=== PATIENT | female | born 1945 | race Hispanic/Latino ===

== ENCOUNTER 2019-04-05 15:28 | Inpatient (IN) | payer MEDICARE ==
--- NOTE | 2019-04-05 15:46 | Emergency Department Report ---
Blank Doc - Documentation Documentation: This is a 73-year-old female that presents with chest pain and SOB. This initial assessment/diagnostic orders/clinical plan/treatment(s) is/are subject to change based on patient's health status, clinical progression and re- assessment by fellow clinical providers in the ED. Further treatment and workup at subsequent clinical providers discretion. Patient/guardians urged not to elope from the ED as their condition may be serious if not clinically assessed and managed. Initial orders include: 1- Patient sent to MAIN ED for further evaluation and treatment 2- labs 3- EKG 4- CXR
[2019-04-05 16:21] LABS: Basophils # (Auto) 0.1 K/mm3 (0.0-0.1); Basophils % (Auto) 0.9 % (0.0-1.8); Eosinophils # (Auto) 0.2 K/mm3 (0.0-0.4); Eosinophils % (Auto) 1.7 % (0.0-4.3); Hematocrit 29.3 % (30.3-42.9); Hemoglobin 8.8 gm/dl (10.1-14.3); Lymphocytes # (Auto) 1.8 K/mm3 (1.2-5.4); Lymphocytes % (Auto) 15.3 % (13.4-35.0); Mean Corpuscular HGB Conc 30 % (30-34); Mean Corpuscular Volume 72 fl (79-97); Monocytes # (Auto) 0.5 K/mm3 (0.0-0.8); Monocytes % (Auto) 4.2 % (0.0-7.3); Platelet Count 400 K/mm3 (140-440); Red Blood Count 4.09 M/mm3 (3.65-5.03)
--- NOTE | 2019-04-05 16:21 | XRay Report ---
CHEST 2 VIEWS INDICATION / CLINICAL INFORMATION: Chest Pain. COMPARISON: 11/12/14 FINDINGS: SUPPORT DEVICES: None. HEART / MEDIASTINUM: Heart is upper normal size and stable. Slight increase in size of moderately lar ge retrocardiac hiatal hernia. LUNGS / PLEURA: No significant pulmonary or pleural abnormality. No pneumothorax. ADDITIONAL FINDINGS: No significant additional findings. IMPRESSION: 1. No acute pulmonary or pleural findings. 2. Moderately large hiatal hernia. Signer Name: Ami Gregory MD Signed: 04/05/2019 4:17 PM Workstation Name: [id number] [email or web address]
[2019-04-05 16:42] LABS: Calcium 8.7 mg/dL (8.4-10.2)
[2019-04-05 17:47] LABS: INR 1.01 (0.87-1.13)
[2019-04-05 17:57] LABS: Partial Thromboplastin Time 30.2 Sec. (24.2-36.6)
[2019-04-05] MEDS ORDERED: ZOFRAN IV PRN ×2 (19:50→22:16)
[2019-04-05] MEDS ORDERED: MORPHINE IV PRN (19:50)
--- NOTE | 2019-04-05 19:56 | Emergency Department Report ---
HPI - General Chief Complaint: Chest Pain Time Seen by Provider: 04/05/19 15:45 - HPI HPI: Room 24 The patient is a 73-year-old female presented with a chief complaint of chest pain and knee pain. The patient states she's had pain in the left chest and left knee for approximately one week. Patient states she does recall falling over a chair one week ago. Patient complains of pain in left chest described as intermittent with movement. Patient denies shortness of breath, nausea/vomiting or diaphoresis. Patient admits to increased cough over the past 3 days as occasionally productive. Family states the patient has had multiple falls in the past week and is now unable to ablate without falling. Location: [See above] Duration: [See above] Quality: [See above] Severity: [See above] Modifying factors: [see above] Context: [see above] Mode of transportation: [not driving] ED Past Medical Hx - Past Medical History Hx Hypertension: Yes Hx Diabetes: Yes Hx COPD: Yes Hx Dementia: Yes Additional medical history: lupus, anxiety, hyperlipidemia. States a "blood clot on the brain". - Surgical History Hx Appendectomy: Yes Additional Surgical History: Tonsillectomy - Family History Family history: no significant - Social History Smoking Status: Former Smoker (none 50 years) Substance Use Type: None - Medications Home Medications: Home Medications Medication Instructions Recorded Confirmed Last Taken Type ALPRAZolam [Xanax TAB] 0.25 mg PO BID PRN 11/12/14 04/05/19 11/12/14 History Carvedilol [Coreg] 25 mg PO BID 11/12/14 04/05/19 11/12/14 History Hydroxychloroquine [Plaquenil] 400 mg PO QDAY 11/12/14 04/05/19 11/12/14 History PARoxetine (NF) [Paxil] 40 mg PO DAILY 11/12/14 04/05/19 11/12/14 History Simvastatin [Zocor] 80 mg PO QDAY 11/12/14 04/05/19 11/12/14 History metFORMIN [Glucophage] 1,000 mg PO BID 11/12/14 04/05/19 11/12/14 History methylPREDNISolone [Medrol] 4 mg PO Q24HR 11/12/14 04/05/19 11/12/14 History predniSONE [Deltasone] 20 mg PO QDAY 11/12/14 04/05/19 11/12/14 History Azithromycin [Zithromax Z-PAVAN] 250 mg PO DAILY #6 tablet 11/13/14 04/05/19 Unknown Rx HYDROcodone/APAP 5-325 [Drums 1 each PO Q8HR PRN #14 tablet 11/13/14 04/05/19 Unknown Rx 5/325] ED Review of Systems ROS: Stated complaint: CHEST PAIN Other details as noted in HPI Constitutional: denies: diaphoresis Eyes: denies: eye pain ENT: denies: throat pain Respiratory: cough. denies: shortness of breath Cardiovascular: chest pain Endocrine: no symptoms reported Gastrointestinal: denies: nausea, vomiting Genitourinary: denies: dysuria Musculoskeletal: arthralgia Neurological: denies: headache Physical Exam - Physical Exam Vital Signs: Vital Signs 04/05/19 04/05/19 15:46 19:37 Temperature 98.6 F 98.5 F Pulse Rate 111 H 102 H Respiratory 20 16 Rate Blood Pressure 131/62 Blood Pressure 153/73 [Right] O2 Sat by Pulse 95 98 Oximetry Physical Exam: GENERAL: The patient is well-developed well-nourished female lying on stretcher not appearing to be in acute distress. [] HEENT: Normocephalic. Atraumatic. Extraocular motions are intact. Patient has moist mucous membranes. NECK: Supple. No midline CHEST/LUNGS: Clear to auscultation. There is no respiratory distress noted. HEART/CARDIOVASCULAR: Regular. There is no tachycardia. There is no gallop rub or murmur. ABDOMEN: Abdomen is soft, nontender. Patient has normal bowel sounds. There is no abdominal distention. SKIN: There is no rash. There is no edema. There is no diaphoresis. NEURO: The patient is awake, alert, and oriented. The patient is cooperative. The patient has no focal neurologic deficits. The patient has normal speech MUSCULOSKELETAL: There is mild discomfort to palpation of the left knee. ED Course Vital Signs 04/05/19 04/05/19 15:46 19:37 Temperature 98.6 F 98.5 F Pulse Rate 111 H 102 H Respiratory 20 16 Rate Blood Pressure 131/62 Blood Pressure 153/73 [Right] O2 Sat by Pulse 95 98 Oximetry ED Medical Decision Making - Lab Data Result diagrams: 04/05/19 16:07 04/05/19 16:07 - EKG Data -: EKG Interpreted by Me EKG shows normal: sinus rhythm Rate: tachycardia - EKG Data When compared to previous EKG there are: changes noted Interpretation: nonspecific ST-T wave german (new T-wave inversion in lead V2, V3 compared to previous EKG dated 11/12/2014) - Radiology Data Radiology results: report reviewed (chest x-ray, CT head, CT chest, pelvis x- ray, left knee x-ray), image reviewed (chest x-ray, CT head, CT chest, pelvis x- ray, left knee x-ray) interpreted by me: Chest x-ray-no focal infiltrates, no pneumothorax Pelvis x-ray-no acute fracture Left knee x-ray-no definite fracture seen. Opaque densities seen [address] [address] XRay Report Signed Patient: LUANNE BRANCH MR#: [id number] [birth year] : 1945 Acct:[id number] Age/Sex: 73 / F ADM Date: 04/05/19 Loc: ED Attending Dr: Ordering Physician: MARICRUZ MCDONNELL NP Date of Service: 04/05/19 Procedure(s): XR chest routine 2V Accession Number(s): [id number] cc: MARICRUZ MCDONNELL NP Fluoro Time In Minutes: CHEST 2 VIEWS INDICATION / CLINICAL INFORMATION: Chest Pain. COMPARISON: 11/12/14 FINDINGS: SUPPORT DEVICES: None. HEART / MEDIASTINUM: Heart is upper normal size and stable. Slight increase in size of moderately large retrocardiac hiatal hernia. LUNGS / PLEURA: No significant pulmonary or pleural abnormality. No pneumothorax. ADDITIONAL FINDINGS: No significant additional findings. IMPRESSION: 1. No acute pulmonary or pleural findings. 2. Moderately large hiatal hernia. Signer Name: Ami Gregory MD Signed: 04/05/2019 4:17 PM Workstation Name: [email or web address] Transcribed By: DT Dictated By: Brando Gregory MD Electronically Authenticated By: Brando Gregory MD Signed Date/Time: 04/05/191616 DD/ 15 TD/TT: [address] [address] Cat Scan Report Signed Patient: LUANNE BRANCH MR#: [id number] [birth year] : 1945 Acct:[id number] Age/Sex: 73 / F ADM Date: 04/05/19 Loc: ED Attending Dr: Ordering Physician: BARBARA JENSEN MD Date of Service: 04/05/19 Procedure(s): CT head/brain wo con Accession Number(s): [id number] cc: BARBARA JENSEN MD CT HEAD WITHOUT CONTRAST INDICATION: fall. Head injury TECHNIQUE: All CT scans at this location are performed using CT dose reduction for ALARA by means of automated exposure control. COMPARISON: CT 11/13/2014. FINDINGS: HEMORRHAGE: None. EXTRA-AXIAL SPACES: Normal in size and morphology for the patient's age. VENTRICULAR SYSTEM: Normal in size and morphology for the patient's age. BRAIN PARENCHYMA: No acute findings. Mild periventricular white matter hypodensities are likely due to microangiopathy. MIDLINE SHIFT OR HERNIATION: None. ORBITS: Normal as visualized. SOFT TISSUES OF HEAD: Normal. CALVARIUM: Normal. VISUALIZED PARANASAL SINUSES AND MASTOID AIR CELLS: Clear. ADDITIONAL FINDINGS: None. IMPRESSION: 1. No acute intracranial abnormality. Signer Name: Edwin Holt MD Signed: 04/05/2019 9:12 PM Workstation Name: [id number] Transcribed By: Dictated By: Edwin Holt MD Electronically Authenticated By: Edwin Holt MD Signed Date/Time: 04/05/192111 DD/ 08 TD/TT: [address] [address] Cat Scan Report Signed Patient: LUANNE BRANCH MR#: [id number] [birth year] : 1945 Acct:[id number] Age/Sex: 73 / F ADM Date: 04/05/19 Loc: ED Attending Dr: Ordering Physician: BARBARA JENSEN MD Date of Service: 04/05/19 Procedure(s): CT chest wo con Accession Number(s): [id number] cc: BARBARA JENSEN MD CT CHEST WITHOUT CONTRAST INDICATION / CLINICAL INFORMATION: left chest pain after fall. TECHNIQUE: Axial CT images were obtained through the chest without contrast. All CT scans at this location are performed using CT dose reduction for ALARA by means of automated exposure control. COMPARISON: CT abdomen dated 04/21/15 FINDINGS: HEART: Heart is upper normal size and stable. Mild coronary artery calcifications. THORACIC AORTA: No significant abnormality. MEDIASTINUM and ELENA: No significant abnormality. LUNGS: Mild bibasilar atelectasis. PLEURA: No significant pleural effusion. No pneumothorax. ADDITIONAL FINDINGS: None. UPPER ABDOMEN: Moderately large hiatal hernia is unchanged. SKELETAL SYSTEM: Subtle buckle fracture of the anterior left 6th rib may be acute. Several old, healed left rib fractures. IMPRESSION: 1. Possible subtle buckle fracture of the anterior left 6th rib. 2. No acute pulmonary or pleural findings. 3. Moderately large hiatal hernia, unchanged. Signer Name: Ami Gregory MD Signed: 04/05/2019 9:05 PM Workstation Name: [id number] Transcribed By: DT Dictated By: Brando Gregory MD Electronically Authenticated By: Brando Gregory MD Signed Date/Time: 04/05/192104 DD/ 01 TD/TT: [facility] [address] [place] [address] XRay Report Signed Patient: LUANNE BRANCH MR#: [id number] [birth year] : 1945 Acct:[id number] Age/Sex: 73 / F ADM Date: 04/05/19 Loc: ED Attending Dr: Ordering Physician: BARBARA JENSEN MD Date of Service: 04/05/19 Procedure(s): XR pelvis 1-2V Accession Number(s): [id number] cc: BARBARA JENSEN MD Fluoro Time In Minutes: PELVIS 1 VIEW(S) INDICATION / CLINICAL INFORMATION: MAIN: inability to ambulate, pain after fall COMPARISON: None available. FINDINGS: BONES / JOINT(S): No acute fracture or subluxation. Mild bilateral hip joint space narrowing. Patient is subjectively osteopenic. Mild degenerative arthrosis of the lower lumbar spine. SOFT TISSUES: No significant abnormality. ADDITIONAL FINDINGS: None. Signer Name: Ami Gregory MD Signed: 04/05/2019 8:31 PM Workstation Name: [id number] Transcribed By: DT Dictated By: Brando Gregory MD Electronically Authenticated By: Brando Gregory MD Signed Date/Time: 04/05/192030 DD/ 29 TD/TT: [facility] [address] [place] [address] XRay Report Signed Patient: LUANNE BRANCH MR#: [id number] [birth year] : 1945 Acct:[id number] Age/Sex: 73 / F ADM Date: 04/05/19 Loc: ED Attending Dr: Ordering Physician: BARBARA JENSEN MD Date of Service: 04/05/19 Procedure(s): XR knee 3V LT Accession Number(s): [id number] cc: BARBARA JENSEN MD Fluoro Time In Minutes: LEFT KNEE 4 VIEW(S) INDICATION / CLINICAL INFORMATION: pain after fall COMPARISON: None available. FINDINGS: BONES / JOINT(S): No acute fracture or subluxation. Moderate tricompartment degenerative arthrosis. Chondrocalcinosis of both menisci. 1 cm osteochondral body in the posterior joint space. No significant joint effusion. SOFT TISSUES: Mild anterior soft tissue swelling. ADDITIONAL FINDINGS: None. Signer Name: Ami Gregory MD Signed: 04/05/2019 8:30 PM Workstation Name: [id number] Transcribed By: DT Dictated By: Brando Gregory MD Electronically Authenticated By: Brando Gregory MD Signed Date/Time: 04/05/192029 DD/ 28 TD/TT: - Differential Diagnosis bruised rib, rib fracture, ACS, pericarditis, hiatal hernia, GERD Critical care attestation.: If time is entered above; I have spent that time in minutes in the direct care of this critically ill patient, excluding procedure time. ED Disposition Clinical Impression: Chest pain, Rib fracture, Unable to ambulate Disposition: OP ADMIT IP TO THIS HOSP Is pt being admited?: Yes Does the pt Need Aspirin: Yes Condition: Fair Instructions: Chest Pain (ED) Referrals: JAMI GALO MD [Primary Care Provider] - 3-5 Days Time of Disposition: 21:47 (hospitalist paged (Dr. Aleyda Powers))
--- NOTE | 2019-04-05 20:35 | XRay Report ---
LEFT KNEE 4 VIEW(S) INDICATION / CLINICAL INFORMATION: pain after fall COMPARISON: None available. FINDINGS: BONES / JOINT(S): No acute fracture or subluxation. Moderate tricompartment degenerative arthrosis. C hondrocalcinosis of both menisci. 1 cm osteochondral body in the posterior joint space. No significan t joint effusion. SOFT TISSUES: Mild anterior soft tissue swelling. ADDITIONAL FINDINGS: None. Signer Name: Ami Gregory MD Signed: 04/05/2019 8:30 PM Workstation Name: [id number]
--- NOTE | 2019-04-05 20:36 | XRay Report ---
PELVIS 1 VIEW(S) INDICATION / CLINICAL INFORMATION: MAIN: inability to ambulate, pain after fall COMPARISON: None available. FINDINGS: BONES / JOINT(S): No acute fracture or subluxation. Mild bilateral hip joint space narrowing. Patient is subjectively osteopenic. Mild degenerative arthrosis of the lower lumbar spine. SOFT TISSUES: No significant abnormality. ADDITIONAL FINDINGS: None. Signer Name: Ami Gregory MD Signed: 04/05/2019 8:31 PM Workstation Name: [id number]
--- NOTE | 2019-04-05 21:10 | Cat Scan Report ---
CT CHEST WITHOUT CONTRAST INDICATION / CLINICAL INFORMATION: left chest pain after fall. TECHNIQUE: Axial CT images were obtained through the chest without contrast. All CT scans at this location are p erformed using CT dose reduction for ALARA by means of automated exposure control. COMPARISON: CT abdomen dated 04/21/15 FINDINGS: HEART: Heart is upper normal size and stable. Mild coronary artery calcifications. THORACIC AORTA: No significant abnormality. MEDIASTINUM and ELENA: No significant abnormality. LUNGS: Mild bibasilar atelectasis. PLEURA: No significant pleural effusion. No pneumothorax. ADDITIONAL FINDINGS: None. UPPER ABDOMEN: Moderately large hiatal hernia is unchanged. SKELETAL SYSTEM: Subtle buckle fracture of the anterior left 6th rib may be acute. Several old, heale d left rib fractures. IMPRESSION: 1. Possible subtle buckle fracture of the anterior left 6th rib. 2. No acute pulmonary or pleural findings. 3. Moderately large hiatal hernia, unchanged. Signer Name: Ami Gregory MD Signed: 04/05/2019 9:05 PM Workstation Name: [id number]
--- NOTE | 2019-04-05 21:16 | Cat Scan Report ---
CT HEAD WITHOUT CONTRAST INDICATION: fall. Head injury TECHNIQUE: All CT scans at this location are performed using CT dose reduction for ALARA by means of automated e xposure control. COMPARISON: CT 11/13/2014. FINDINGS: HEMORRHAGE: None. EXTRA-AXIAL SPACES: Normal in size and morphology for the patient's age. VENTRICULAR SYSTEM: Normal in size and morphology for the patient's age. BRAIN PARENCHYMA: No acute findings. Mild periventricular white matter hypodensities are likely due t o microangiopathy. MIDLINE SHIFT OR HERNIATION: None. ORBITS: Normal as visualized. SOFT TISSUES OF HEAD: Normal. CALVARIUM: Normal. VISUALIZED PARANASAL SINUSES AND MASTOID AIR CELLS: Clear. ADDITIONAL FINDINGS: None. IMPRESSION: 1. No acute intracranial abnormality. Signer Name: Edwin Holt MD Signed: 04/05/2019 9:12 PM Workstation Name: [id number]
[2019-04-05] MEDS ORDERED: ASPIRIN PO ONE (21:46)
[2019-04-05] MEDS ORDERED: K-DUR PO ONE (21:46)
[2019-04-05] MEDS ORDERED: D50W (25GM) Syringe IV PRN (22:16)
[2019-04-05] MEDS ORDERED: SODIUM CHLORIDE FLUSH SYRINGE 10 ML IV PRN (22:16)
--- NOTE | 2019-04-05 22:30 | History and Physical Report ---
History of Present Illness Date of examination: 04/05/19 History of present illness: 73-year-old history of hypertension, diabetes, COPD, hyperlipidemia and anxiety was brought to the emergency room for difficulty ambulating. Patient sustained a fall on , fell on the left chest and hurt her knees, left greater than right. Stated that her chest feels bruise. Patient subsequently had 3 more falls Review Of Systems: Constitutional: no weight loss, fever, chills Ears, eyes, nose, mouth and throat: no nasal congestion, no nasal discharge, no sinus pressure, blurry vision, diplopia Neck: No neck pain or rigidity. Cardiovascular: No palpitations Respiratory: No shortness of breath, cough Gastrointestinal: No hematochezia, abdominal pain Genitourinary : no dysuria, frequency , hematuria Musculoskeletal: no muscle ache Integumentary: no rash, no pruritis Neurological: no parathesias, focal weakness Endocrine: no cold or heat intolerance, no polyuria or polydipsia Hematologic/Lymphatic: no easy bruising, no easy bleeding, no gland swelling Allergic/Immunologic: no urticaria, no angioedema. PAST MEDICAL HISTORY:hypertension, diabetes, COPD, hyperlipidemia and anxiety PAST SURGICAL HISTORY: Tonsillectomy, appendicectomy FAMILY HISTORY:hypertension, diabetes SOCIAL HISTORY: Denies tobacco, drugs, alcohol Medications and Allergies Allergies Allergy/AdvReac Type Severity Reaction Status Date / Time codeine Allergy Swelling Verified 11/12/14 18:20 Penicillins Allergy Anaphylaxis Verified 11/12/14 18:31 Home Medications Medication Instructions Recorded Confirmed Last Taken Type ALPRAZolam [Xanax TAB] 0.25 mg PO BID PRN 11/12/14 04/05/19 11/12/14 History Carvedilol [Coreg] 25 mg PO BID 11/12/14 04/05/19 11/12/14 History Hydroxychloroquine [Plaquenil] 400 mg PO QDAY 11/12/14 04/05/19 11/12/14 History PARoxetine (NF) [Paxil] 40 mg PO DAILY 11/12/14 04/05/19 11/12/14 History Simvastatin [Zocor] 80 mg PO QDAY 11/12/14 04/05/19 11/12/14 History metFORMIN [Glucophage] 1,000 mg PO BID 11/12/14 04/05/19 11/12/14 History methylPREDNISolone [Medrol] 4 mg PO Q24HR 11/12/14 04/05/19 11/12/14 History predniSONE [Deltasone] 20 mg PO QDAY 11/12/14 04/05/19 11/12/14 History Azithromycin [Zithromax Z-PAVAN] 250 mg PO DAILY #6 tablet 11/13/14 04/05/19 Unknown Rx HYDROcodone/APAP 5-325 [Johnson 1 each PO Q8HR PRN #14 tablet 11/13/14 04/05/19 Unknown Rx 5/325] Active Meds: Active Medications Acetaminophen (Tylenol) 650 mg PO Q4H PRN PRN Reason: Pain MILD(1-3)/Fever >100.5/PITTS Dextrose (D50w (25gm) Syringe) 50 ml IV PRN PRN PRN Reason: Hypoglycemia Enoxaparin Sodium (Lovenox) 30 mg SUB-Q QDAY DELFINO Insulin Human Lispro (Humalog) 0 unit SUB-Q ACHS DELFINO; Protocol Morphine Sulfate (Morphine) 4 mg IV ONCE PRN PRN Reason: Pain , Severe (7-10) Ondansetron HCl (Zofran) 8 mg IV ONCE PRN PRN Reason: Nausea Ondansetron HCl (Zofran) 4 mg IV Q8H PRN PRN Reason: Nausea And Vomiting Sodium Chloride (Sodium Chloride Flush Syringe 10 Ml) 10 ml IV BID DELFINO Sodium Chloride (Sodium Chloride Flush Syringe 10 Ml) 10 ml IV PRN PRN PRN Reason: LINE FLUSH Exam - Physical Exam Narrative exam: General Apperance: The patient sitting in bed no acute distress HEENT: Normocephalic, atraumatic. Pupils equally round and reactive to light, extraocular movement intact, and no sclericterus or JVD or thyromegaly or nodule. Neck supple, no carotid bruit, mucous membranes moist, no exudate or erythema Heart: S1-S2, regular is rhythm Lungs: Clear to auscultation bilaterally, breathing comfortable Abdomen: Positive bowel sounds, soft, nontender, nondistended, no organomegaly Extremities: No edema cyanosis clubbing Skin: no rash, nodule, warm and dry Neuro:CN 2 -12 intact, motor/sensory intact, speech is fluent - Constitutional Vitals: Temp Pulse Resp BP Pulse Ox 98.5 F 102 H 16 153/73 98 04/05/19 19:37 04/05/19 19:37 04/05/19 19:37 04/05/19 19:37 04/05/19 19:37 Results - Labs CBC & Chem 7: 04/06/19 05:59 04/11/19 14:48 Labs: Abnormal lab results 04/05/19 04/05/19 Range/Units 16:07 16:07 WBC 11.6 H (4.5-11.0) K/mm3 Hgb 8.8 L (10.1-14.3) gm/dl Hct 29.3 L (30.3-42.9) % MCV 72 L (79-97) fl MCH 22 L (28-32) pg RDW 19.0 H (13.2-15.2) % Seg Neutrophils % 77.9 H (40.0-70.0) % Seg Neutrophils # 9.0 H (1.8-7.7) K/mm3 Sodium 136 L (137-145) mmol/L Potassium 3.2 L (3.6-5.0) mmol/L Chloride 95.7 L (98-107) mmol/L Glucose 260 H (65-100) mg/dL - Imaging and Cardiology EKG: image reviewed Chest x-ray: image reviewed CT scan - chest: report reviewed CT Scan - head: report reviewed Assessment and Plan pelvis, knee xray reviewed Assessment Failure to thrive Fractured rib hypertension diabetes COPD hyperlipidemia anxiety Plan Admit to medicine Consult physical therapy, pain medication Check fingersticks and initiate insulin sliding scale Continue appropriate outpatient medications DVT prophylaxis
[2019-04-05] MEDS ORDERED: HumaLOG SUB-Q SCH (23:04)
[2019-04-05] MEDS ORDERED: APRESOLINE ONE (23:28)
[2019-04-05] MEDS ORDERED: HumaLOG SUB-Q ONE (23:30)
[2019-04-05] MEDS: HumaLOG SUB-Q SCH (23:35)
[2019-04-05] MEDS: APRESOLINE IV PRN (23:36)
[2019-04-06 06:32] LABS: Basophils # (Auto) 0.1 K/mm3 (0.0-0.1); Basophils % (Auto) 0.8 % (0.0-1.8); Eosinophils # (Auto) 0.2 K/mm3 (0.0-0.4); Eosinophils % (Auto) 2.4 % (0.0-4.3); Hematocrit 25.5 % (30.3-42.9); Hemoglobin 8.1 gm/dl (10.1-14.3); Lymphocytes # (Auto) 1.1 K/mm3 (1.2-5.4); Lymphocytes % (Auto) 14.5 % (13.4-35.0); Mean Corpuscular HGB Conc 32 % (30-34); Mean Corpuscular Volume 70 fl (79-97); Monocytes # (Auto) 0.4 K/mm3 (0.0-0.8); Monocytes % (Auto) 4.7 % (0.0-7.3); Red Blood Count 3.63 M/mm3 (3.65-5.03); Red Cell Distribution Width 18.9 % (13.2-15.2)
[2019-04-06 06:50] LABS: Calcium 8.6 mg/dL (8.4-10.2)
[2019-04-06 06:55] LABS: Platelet Count 334 K/mm3 (140-440)
[2019-04-06] MEDS ORDERED: HumaLOG SUB-Q SCH (07:30)
[2019-04-06] MEDS: GLUCOPHAGE PO SCH ×2 (08:51→17:52)
[2019-04-06] MEDS: HumaLOG SUB-Q SCH ×4 (08:52→21:20)
[2019-04-06] MEDS: PAXIL PO SCH (09:33)
[2019-04-06] MEDS: DELTASONE PO SCH (09:33)
[2019-04-06] MEDS: PLAQUENIL PO SCH (09:33)
[2019-04-06] MEDS: LOVENOX SUB-Q SCH (09:34)
[2019-04-06] MEDS: COREG PO SCH ×3 (09:34→22:25)
[2019-04-06] MEDS: SODIUM CHLORIDE FLUSH SYRINGE 10 ML IV SCH ×2 (09:35→21:15)
[2019-04-06] MEDS: PRAVACHOL PO SCH (12:37)
--- NOTE | 2019-04-06 15:19 | Progress Note ---
Assessment and Plan Failure to thrive s/p fall Fractured rib hypertension diabetes COPD hyperlipidemia anxiety Plan monitor at [facility] [place] Consulted physical therapy, pain medication as needed Check fingersticks BG and continue insulin sliding scale Continue appropriate outpatient medications, nebs as needed CM consulted for placement, nutrition consult DVT prophylaxis Brief history: 73-year-old history of hypertension, diabetes, COPD, hyperlipidemia and anxiety was brought to the emergency room for difficulty ambulating. Patient sustained a fall on , fell on the left chest and hurt her knees, left greater than right. Stated that her chest feels bruise. Patient subsequently had 3 more falls, brought to ER for further mx and placement. Subjective Date of service: 04/06/19 Interval history: patient seen and examined no acute issue o/n states feels better, chest pain much improved Objective - Exam Narrative Exam: General Apperance: The patient lying in bed no acute distress HEENT: Normocephalic, atraumatic. Pupils equally round and reactive to light, extraocular movement intact, and no sclericterus or JVD or thyromegaly or nodule. Neck supple, no carotid bruit, mucous membranes moist, no exudate or erythema Heart: S1-S2, regular is rhythm Lungs: Clear to auscultation bilaterally, breathing comfortable Abdomen: Positive bowel sounds, soft, nontender, nondistended, no organomegaly Extremities: No edema cyanosis clubbing Skin: no rash, nodule, warm and dry Neuro:CN 2 -12 intact, motor/sensory intact, speech is fluent - Constitutional Vitals: Vital Signs - 12hr 04/06/19 04/06/19 04/06/19 05:44 05:45 12:16 Temperature 98.5 F 98.2 F Pulse Rate 73 83 Respiratory 19 20 Rate Blood Pressure 161/61 90/43 O2 Sat by Pulse 96 96 Oximetry - Labs CBC & Chem 7: 04/06/19 05:59 04/06/19 05:59 Labs: Abnormal lab results 04/05/19 04/05/19 04/05/19 Range/Units 16:07 16:07 23:30 WBC 11.6 H (4.5-11.0) K/mm3 RBC (3.65-5.03) M/mm3 Hgb 8.8 L (10.1-14.3) gm/dl Hct 29.3 L (30.3-42.9) % MCV 72 L (79-97) fl MCH 22 L (28-32) pg RDW 19.0 H (13.2-15.2) % Lymph # (1.2-5.4) K/mm3 Seg Neutrophils % 77.9 H (40.0-70.0) % Seg Neutrophils # 9.0 H (1.8-7.7) K/mm3 Sodium 136 L (137-145) mmol/L Potassium 3.2 L (3.6-5.0) mmol/L Chloride 95.7 L (98-107) mmol/L Glucose 260 H (65-100) mg/dL POC Glucose 214 H (70-105) 04/06/19 04/06/19 04/06/19 Range/Units 05:59 05:59 07:57 WBC (4.5-11.0) K/mm3 RBC 3.63 L (3.65-5.03) M/mm3 Hgb 8.1 L (10.1-14.3) gm/dl Hct 25.5 L (30.3-42.9) % MCV 70 L (79-97) fl MCH 22 L (28-32) pg RDW 18.9 H (13.2-15.2) % Lymph # 1.1 L (1.2-5.4) K/mm3 Seg Neutrophils % 77.6 H (40.0-70.0) % Seg Neutrophils # (1.8-7.7) K/mm3 Sodium (137-145) mmol/L Potassium (3.6-5.0) mmol/L Chloride (98-107) mmol/L Glucose 227 H (65-100) mg/dL POC Glucose 183 H (70-105) 04/06/19 Range/Units 11:23 WBC (4.5-11.0) K/mm3 RBC (3.65-5.03) M/mm3 Hgb (10.1-14.3) gm/dl Hct (30.3-42.9) % MCV (79-97) fl MCH (28-32) pg RDW (13.2-15.2) % Lymph # (1.2-5.4) K/mm3 Seg Neutrophils % (40.0-70.0) % Seg Neutrophils # (1.8-7.7) K/mm3 Sodium (137-145) mmol/L Potassium (3.6-5.0) mmol/L Chloride (98-107) mmol/L Glucose (65-100) mg/dL POC Glucose 169 H (70-105)
[2019-04-07] MEDS: GLUCOPHAGE PO SCH ×2 (09:02→17:42)
[2019-04-07] MEDS: HumaLOG SUB-Q SCH ×4 (09:03→22:20)
[2019-04-07] MEDS: PLAQUENIL PO SCH (10:06)
[2019-04-07] MEDS: PAXIL PO SCH (10:06)
[2019-04-07] MEDS: COREG PO SCH ×2 (10:06→22:19)
[2019-04-07] MEDS: DELTASONE PO SCH (10:06)
[2019-04-07] MEDS: LOVENOX SUB-Q SCH (10:06)
[2019-04-07] MEDS: SODIUM CHLORIDE FLUSH SYRINGE 10 ML IV SCH ×2 (10:07→22:21)
--- NOTE | 2019-04-07 10:54 | Progress Note ---
Assessment and Plan Assessment and plan: --Failure to thrive; nutrition supplements and supportive care Physical therapy and occupational therapy --s/p falll fall precautions, physical therapy occupational therapy --Fractured rib; causing left-sided chest pain, musculoskeletal Pain medications, incentive spirometry --Atypical chest pain; secondary to trauma/rib fracture/musculoskeletal Pain medications, incentive spirometry and supportive care --hypertension; moderate control, continue current anti-hypertensives When necessary medications --diabetes mellitus; Accu-Chek,SSC and ADA diet, metformin, 70/30 insulin 8 units twice a day Check A1c . --History of COPD; oxygen titrate O2 sats to more than 90%, nebulizers as needed --hyperlipidemia; lipid lowering medications, Low-cholesterol diet --anxiety; anxiolytics and supportive care --DVT prophylaxis; Lovenox --Full code --DC planning. Case management, --Possible placement in subacute/acute/SNF when medically stable Plan of care reviewed with the patient and the family member at the bedside as well as patient's nurse Brief history: 73-year-old history of hypertension, diabetes, COPD, hyperlipidemia and anxiety was brought to the emergency room for difficulty ambulating. Patient sustained a fall on , fell on the left chest and hurt her knees, left greater than right. Stated that her chest feels bruise. Patient subsequently had 3 more falls, brought to ER for further mx and placement. History Interval history: Patient seen and examined medical records reviewed Complaints of generalized weakness Alert awake oriented Vital signs reviewed Patient denies chest pain or shortness of breath Denies headache or dizziness Hospitalist Physical - Constitutional Vitals: Temp Pulse Resp BP Pulse Ox 98.5 F 93 H 18 184/73 94 04/07/19 07:50 04/06/19 21:13 04/07/19 07:50 04/07/19 07:50 04/07/19 09:56 General appearance: Present: no acute distress, well-nourished - EENT Eyes: Present: PERRL, EOM intact - Neck Neck: Present: supple, normal ROM - Respiratory Respiratory effort: normal Respiratory: bilateral: diminished, negative: rales, rhonchi, wheezing - Cardiovascular Rhythm: regular Heart Sounds: Present: S1 & S2 - Extremities Extremities: no ischemia, No edema - Abdominal General gastrointestinal: soft, non-tender, non-distended, normal bowel sounds - Integumentary Integumentary: Present: clear, warm - Psychiatric Psychiatric: appropriate mood/affect, cooperative - Neurologic Neurologic: CNII-XII intact, moves all extremities Results - Labs CBC & Chem 7: 04/06/19 05:59 04/06/19 05:59 Labs: Laboratory Last Values WBC 7.5 K/mm3 (4.5-11.0) 04/06/19 05:59 RBC 3.63 M/mm3 (3.65-5.03) L 04/06/19 05:59 Hgb 8.1 gm/dl (10.1-14.3) L 04/06/19 05:59 Hct 25.5 % (30.3-42.9) L 04/06/19 05:59 MCV 70 fl (79-97) L 04/06/19 05:59 MCH 22 pg (28-32) L 04/06/19 05:59 MCHC 32 % (30-34) 04/06/19 05:59 RDW 18.9 % (13.2-15.2) H 04/06/19 05:59 Plt Count 334 K/mm3 (140-440) 04/06/19 05:59 Lymph % (Auto) 14.5 % (13.4-35.0) 04/06/19 05:59 [place] % (Auto) 4.7 % (0.0-7.3) 04/06/19 05:59 Eos % (Auto) 2.4 % (0.0-4.3) 04/06/19 05:59 Baso % (Auto) 0.8 % (0.0-1.8) 04/06/19 05:59 Lymph # 1.1 K/mm3 (1.2-5.4) L 04/06/19 05:59 [place] # 0.4 K/mm3 (0.0-0.8) 04/06/19 05:59 Eos # 0.2 K/mm3 (0.0-0.4) 04/06/19 05:59 Baso # 0.1 K/mm3 (0.0-0.1) 04/06/19 05:59 Seg Neutrophils % 77.6 % (40.0-70.0) H 04/06/19 05:59 Seg Neutrophils # 5.8 K/mm3 (1.8-7.7) 04/06/19 05:59 PT 13.0 Sec. (12.2-14.9) 04/05/19 16:07 INR 1.01 (0.87-1.13) 04/05/19 16:07 APTT 30.2 Sec. (24.2-36.6) 04/05/19 16:07 Sodium 140 mmol/L (137-145) 04/06/19 05:59 Potassium 3.7 mmol/L (3.6-5.0) 04/06/19 05:59 Chloride 99.8 mmol/L (98-107) 04/06/19 05:59 Carbon Dioxide 26 mmol/L (22-30) 04/06/19 05:59 18 mmol/L 04/06/19 05:59 BUN 15 mg/dL (7-17) 04/06/19 05:59 1.1 mg/dL (0.7-1.2) 04/06/19 05:59 Estimated GFR 49 ml/min 04/06/19 05:59 14 % 04/06/19 05:59 Glucose 227 mg/dL (65-100) H 04/06/19 05:59 POC Glucose 229 (70-105) H 04/07/19 07:45 Calcium 8.6 mg/dL (8.4-10.2) 04/06/19 05:59 0.018 ng/mL (0.00-0.029) 04/05/19 19:01 Active Medications - Current Medications Current Medications: Generic Name Dose Route Start Last Admin Trade Name Lucy PRN Reason Stop Dose Admin Acetaminophen 650 mg 04/05/19 22:16 Tylenol PO Q4H PRN Pain MILD(1-3)/Fever >100.5/PITTS Acetaminophen/Hydrocodone Bitart 1 each 04/05/19 22:51 [place] 5/325 PO Q8H PRN Pain (4-6) Alprazolam 0.25 mg 04/05/19 22:51 Xanax PO BID PRN Anxiety Carvedilol 25 mg 04/06/19 10:00 04/07/19 10:06 Coreg PO 25 mg BID DELFINO Administration Dextrose 50 ml 04/05/19 22:16 D50w (25gm) Syringe IV PRN PRN Hypoglycemia Enoxaparin Sodium 40 mg 04/06/19 10:00 04/07/19 10:06 Lovenox SUB-Q 40 mg QDAY DELFINO Administration Hydralazine HCl 5 mg 04/05/19 22:54 04/05/19 23:36 Apresoline IV 5 mg Q6H PRN Administration Hypertension Hydroxychloroquine Sulfate 400 mg 04/06/19 10:00 04/07/19 10:06 Plaquenil PO 400 mg QDAY DELFINO Administration Insulin Human Lispro 0 unit 04/05/19 23:06 04/07/19 09:03 Humalog SUB-Q 3 unit ACHS DELFINO Administration Protocol Metformin HCl 1,000 mg 04/06/19 08:00 04/07/19 09:02 Glucophage PO 1,000 mg BIDDIAB DELFINO Administration Morphine Sulfate 4 mg 04/05/19 19:50 Morphine IV ONCE PRN Pain , Severe (7-10) Ondansetron HCl 8 mg 04/05/19 19:50 Zofran IV ONCE PRN Nausea Ondansetron HCl 4 mg 04/05/19 22:16 Zofran IV Q8H PRN Nausea And Vomiting Paroxetine HCl 40 mg 04/06/19 10:00 04/07/19 10:06 Paxil PO 40 mg DAILY DELFINO Administration Pravastatin Sodium 80 mg 04/06/19 10:00 04/06/19 12:37 Pravachol PO 80 mg QDAY DELFINO Administration Prednisone 20 mg 04/06/19 10:00 04/07/19 10:06 Deltasone PO 20 mg QDAY DELFINO Administration Sodium Chloride 10 ml 04/06/19 10:00 04/07/19 10:07 Sodium Chloride Flush Syringe 10 Ml IV 10 ml BID DELFINO Administration Sodium Chloride 10 ml 04/05/19 22:16 Sodium Chloride Flush Syringe 10 Ml IV PRN PRN LINE FLUSH
[2019-04-07] MEDS: PRAVACHOL PO SCH (13:00)
[2019-04-07] MEDS: XANAX PO PRN (22:25)
[2019-04-08] MEDS: GLUCOPHAGE PO SCH ×2 (09:12→17:53)
[2019-04-08] MEDS: HumaLOG SUB-Q SCH ×4 (09:13→21:35)
[2019-04-08] MEDS: LOVENOX SUB-Q SCH (11:10)
[2019-04-08] MEDS: PAXIL PO SCH (11:10)
[2019-04-08] MEDS: PLAQUENIL PO SCH (11:10)
[2019-04-08] MEDS: DELTASONE PO SCH (11:11)
[2019-04-08] MEDS: COREG PO SCH ×2 (11:11→21:36)
[2019-04-08] MEDS: SODIUM CHLORIDE FLUSH SYRINGE 10 ML IV SCH ×2 (11:12→21:37)
[2019-04-08] MEDS: PRAVACHOL PO SCH (11:12)
--- NOTE | 2019-04-08 13:01 | Progress Note ---
Assessment and Plan Assessment and plan: --Unsteady gait/recurrent falls; fall precautions Physical therapy occupational therapy and supportive care to PT recommend subacute rehabilitation placement --s/p falll fall precautions, physical therapy occupational therapy --Fractured rib; causing left-sided chest pain, musculoskeletal Pain medications, incentive spirometry --Atypical chest pain; noncardiac, secondary to trauma/rib fracture/muscu loskeletal Pain medications, incentive spirometry and supportive care --hypertension; moderate control, continue current anti-hypertensives When necessary medications --diabetes mellitus; Accu-Chek,SSC and ADA diet, metformin, 70/30 insulin 8 units twice a day Check A1c . --History of COPD; oxygen titrate O2 sats to more than 90%, nebulizers as needed --hyperlipidemia; lipid lowering medications, Low-cholesterol diet --anxiety; anxiolytics and supportive care --DVT prophylaxis; Lovenox --Full code --DC planning. Case management, --Possible placement in subacute/acute/SNF when medically stable Plan of care reviewed with the patient and the family member at the bedside as well as patient's nurse History Interval history: Patient Seen and examined, medical records reviewed Feels slightly better, poor oral intake Alert and awake, confused, not in distress Vital signs noted Hospitalist Physical - Constitutional Vitals: Temp Pulse Resp BP Pulse Ox 97.8 F 88 18 122/66 90 04/08/19 11:59 04/08/19 11:59 04/08/19 11:59 04/08/19 11:59 04/08/19 11:59 General appearance: Present: no acute distress, well-nourished - EENT Eyes: Present: PERRL, EOM intact - Neck Neck: Present: supple, normal ROM - Respiratory Respiratory effort: normal Respiratory: bilateral: diminished, negative: rales, rhonchi, wheezing - Cardiovascular Rhythm: regular Heart Sounds: Present: S1 & S2 - Extremities Extremities: no ischemia, No edema Peripheral Pulses: within normal limits - Abdominal General gastrointestinal: soft, non-tender, non-distended, normal bowel sounds - Integumentary Integumentary: Present: clear, warm - Psychiatric Psychiatric: appropriate mood/affect, cooperative - Neurologic Neurologic: CNII-XII intact, moves all extremities Results - Labs CBC & Chem 7: 04/06/19 05:59 04/09/19 08:18 Labs: Laboratory Last Values WBC 7.5 K/mm3 (4.5-11.0) 04/06/19 05:59 RBC 3.63 M/mm3 (3.65-5.03) L 04/06/19 05:59 Hgb 8.1 gm/dl (10.1-14.3) L 04/06/19 05:59 Hct 25.5 % (30.3-42.9) L 04/06/19 05:59 MCV 70 fl (79-97) L 04/06/19 05:59 MCH 22 pg (28-32) L 04/06/19 05:59 MCHC 32 % (30-34) 04/06/19 05:59 RDW 18.9 % (13.2-15.2) H 04/06/19 05:59 Plt Count 334 K/mm3 (140-440) 04/06/19 05:59 Lymph % (Auto) 14.5 % (13.4-35.0) 04/06/19 05:59 [place] % (Auto) 4.7 % (0.0-7.3) 04/06/19 05:59 Eos % (Auto) 2.4 % (0.0-4.3) 04/06/19 05:59 Baso % (Auto) 0.8 % (0.0-1.8) 04/06/19 05:59 Lymph # 1.1 K/mm3 (1.2-5.4) L 04/06/19 05:59 [place] # 0.4 K/mm3 (0.0-0.8) 04/06/19 05:59 Eos # 0.2 K/mm3 (0.0-0.4) 04/06/19 05:59 Baso # 0.1 K/mm3 (0.0-0.1) 04/06/19 05:59 Seg Neutrophils % 77.6 % (40.0-70.0) H 04/06/19 05:59 Seg Neutrophils # 5.8 K/mm3 (1.8-7.7) 04/06/19 05:59 PT 13.0 Sec. (12.2-14.9) 04/05/19 16:07 INR 1.01 (0.87-1.13) 04/05/19 16:07 APTT 30.2 Sec. (24.2-36.6) 04/05/19 16:07 Sodium 140 mmol/L (137-145) 04/06/19 05:59 Potassium 3.7 mmol/L (3.6-5.0) 04/06/19 05:59 Chloride 99.8 mmol/L (98-107) 04/06/19 05:59 Carbon Dioxide 26 mmol/L (22-30) 04/06/19 05:59 18 mmol/L 04/06/19 05:59 BUN 15 mg/dL (7-17) 04/06/19 05:59 1.1 mg/dL (0.7-1.2) 04/06/19 05:59 Estimated GFR 49 ml/min 04/06/19 05:59 14 % 04/06/19 05:59 Glucose 227 mg/dL (65-100) H 04/06/19 05:59 POC Glucose 265 (70-105) H 04/08/19 11:27 Calcium 8.6 mg/dL (8.4-10.2) 04/06/19 05:59 0.018 ng/mL (0.00-0.029) 04/05/19 19:01 Active Medications - Current Medications Current Medications: Generic Name Dose Route Start Last Admin Trade Name Freq PRN Reason Stop Dose Admin Acetaminophen 650 mg 04/05/19 22:16 Tylenol PO Q4H PRN Pain MILD(1-3)/Fever >100.5/PITTS Acetaminophen/Hydrocodone Bitart 1 each 04/05/19 22:51 [place] 5/325 PO Q8H PRN Pain (4-6) Alprazolam 0.25 mg 04/05/19 22:51 04/07/19 22:25 Xanax PO 0.25 mg BID PRN Administration Anxiety Carvedilol 25 mg 04/06/19 10:00 04/08/19 11:11 Coreg PO 25 mg BID DELFINO Administration Dextrose 50 ml 04/05/19 22:16 D50w (25gm) Syringe IV PRN PRN Hypoglycemia Enoxaparin Sodium 40 mg 04/06/19 10:00 04/08/19 11:10 Lovenox SUB-Q 40 mg QDAY DELFINO Administration Hydralazine HCl 5 mg 04/05/19 22:54 04/05/19 23:36 Apresoline IV 5 mg Q6H PRN Administration Hypertension Hydroxychloroquine Sulfate 400 mg 04/06/19 10:00 04/08/19 11:10 Plaquenil PO 400 mg QDAY DELFINO Administration Insulin Human Isoph/Insulin Regular 8 unit 04/08/19 08:00 04/08/19 09:13 Humulin 70/30 SUB-Q 8 unit BIDDIAB DELFINO Administration Insulin Human Lispro 0 unit 04/05/19 23:06 04/08/19 09:13 Humalog SUB-Q 2 unit ACHS DELFINO Administration Protocol Metformin HCl 1,000 mg 04/06/19 08:00 04/08/19 09:12 Glucophage PO 1,000 mg BIDDIAB DELFINO Administration Morphine Sulfate 4 mg 04/05/19 19:50 Morphine IV ONCE PRN Pain , Severe (7-10) Ondansetron HCl 8 mg 04/05/19 19:50 Zofran IV ONCE PRN Nausea Ondansetron HCl 4 mg 04/05/19 22:16 Zofran IV Q8H PRN Nausea And Vomiting Paroxetine HCl 40 mg 04/06/19 10:00 04/08/19 11:10 Paxil PO 40 mg DAILY DELFINO Administration Pravastatin Sodium 80 mg 04/06/19 10:00 04/08/19 11:12 Pravachol PO 80 mg QDAY DELFINO Administration Prednisone 20 mg 04/06/19 10:00 04/08/19 11:11 Deltasone PO 20 mg QDAY DELFINO Administration Sodium Chloride 10 ml 04/06/19 10:00 04/08/19 11:12 Sodium Chloride Flush Syringe 10 Ml IV 10 ml BID DELFINO Administration Sodium Chloride 10 ml 04/05/19 22:16 Sodium Chloride Flush Syringe 10 Ml IV PRN PRN LINE FLUSH
[2019-04-08] MEDS ORDERED: IMODIUM PO PRN (15:38)
[2019-04-09] MEDS: HumaLOG SUB-Q SCH ×4 (08:44→22:10)
[2019-04-09] MEDS: GLUCOPHAGE PO SCH ×2 (08:44→17:49)
[2019-04-09 08:52] LABS: Albumin 3.6 g/dL (3.9-5); Calcium 9.4 mg/dL (8.4-10.2)
[2019-04-09] MEDS: DELTASONE PO SCH (11:13)
[2019-04-09] MEDS: PAXIL PO SCH (11:13)
[2019-04-09] MEDS: PRAVACHOL PO SCH (11:13)
[2019-04-09] MEDS: PLAQUENIL PO SCH (11:13)
[2019-04-09] MEDS: COREG PO SCH ×2 (11:14→22:07)
[2019-04-09] MEDS: LOVENOX SUB-Q SCH (11:14)
[2019-04-09] MEDS: SODIUM CHLORIDE FLUSH SYRINGE 10 ML IV SCH ×2 (11:15→22:09)
[2019-04-09] MEDS: APRESOLINE IV PRN (12:29)
[2019-04-09] MEDS: TYLENOL PO PRN (12:30)
[2019-04-09] MEDS: NORCO 5/325 PO PRN (14:11)
--- NOTE | 2019-04-09 19:29 | Progress Note ---
Assessment and Plan Assessment and plan: 73-year-old history of hypertension, diabetes, COPD, hyperlipidemia and anxiety was brought to the emergency room for difficulty ambulating. Patient sustained a fall on , fell on the left chest and hurt her knees, left greater than right. Stated that her chest feels bruise. Patient had recurrent falls. Evaluation by PT, recommend subacute versus acute rehabilitation placement, --Acute Kidney injury; probably secondary to vasomotor nephropathy. Gentle hydration, monitor renal function, avoid nephrotoxins Consult nephrology if no improvement --Poor oral intake ; general debility Nutrition supplements and supportive care Physical therapy and occupational therapy --s/p falll fall precautions, physical therapy occupational therapy --Unsteady gait/difficulty ambulating, PT recommended subacute rehabilitation Continue PT OT --Fractured rib; causing left-sided chest pain, musculoskeletal Pain medications, incentive spirometry --Atypical chest pain; non cardiac ,secondary to trauma/rib fracture/musculoskeletal Pain medications, incentive spirometry as needed and supportive care --hypertension; moderate control, continue current anti-hypertensives When necessary medications --diabetes mellitus; Accu-Chek,SSC and ADA diet, metformin, 70/30 insulin 15units twice a day Check A1c . Adjust insulin dose as needed --History of COPD; oxygen titrate O2 sats to more than 90%, nebulizers as needed --hyperlipidemia; lipid lowering medications, Low-cholesterol diet --anxiety; anxiolytics and supportive care --DVT prophylaxis; Lovenox --Full code --DC planning. Case management, placement Plan of care reviewed with the patient and the family member at the bedside as well as patient's nurse Disposition;subacute rehabilitation vs SNF placement when medically stable History Interval history: Patient seen and examined medical records reviewed Physical activity better confused at times Vital signs reviewed Hospitalist Physical - Constitutional Vitals: Temp Pulse Resp BP Pulse Ox 99.8 F H 95 H 19 180/97 96 04/09/19 12:13 04/09/19 12:29 04/09/19 12:13 04/09/19 12:29 04/09/19 12:29 General appearance: Present: no acute distress, well-nourished - EENT Eyes: Present: PERRL, EOM intact - Neck Neck: Present: supple, normal ROM - Respiratory Respiratory effort: normal Respiratory: bilateral: diminished, negative: rales, rhonchi, wheezing - Cardiovascular Rhythm: regular Heart Sounds: Present: S1 & S2 - Extremities Extremities: no ischemia, No edema - Abdominal General gastrointestinal: soft, non-tender, non-distended, normal bowel sounds - Integumentary Integumentary: Present: clear, warm - Psychiatric Psychiatric: appropriate mood/affect, other (confused) - Neurologic Neurologic: moves all extremities Results - Labs CBC & Chem 7: 04/06/19 05:59 04/09/19 08:18 Labs: Laboratory Last Values WBC 7.5 K/mm3 (4.5-11.0) 04/06/19 05:59 RBC 3.63 M/mm3 (3.65-5.03) L 04/06/19 05:59 Hgb 8.1 gm/dl (10.1-14.3) L 04/06/19 05:59 Hct 25.5 % (30.3-42.9) L 04/06/19 05:59 MCV 70 fl (79-97) L 04/06/19 05:59 MCH 22 pg (28-32) L 04/06/19 05:59 MCHC 32 % (30-34) 04/06/19 05:59 RDW 18.9 % (13.2-15.2) H 04/06/19 05:59 Plt Count 334 K/mm3 (140-440) 04/06/19 05:59 Lymph % (Auto) 14.5 % (13.4-35.0) 04/06/19 05:59 [place] % (Auto) 4.7 % (0.0-7.3) 04/06/19 05:59 Eos % (Auto) 2.4 % (0.0-4.3) 04/06/19 05:59 Baso % (Auto) 0.8 % (0.0-1.8) 04/06/19 05:59 Lymph # 1.1 K/mm3 (1.2-5.4) L 04/06/19 05:59 [place] # 0.4 K/mm3 (0.0-0.8) 04/06/19 05:59 Eos # 0.2 K/mm3 (0.0-0.4) 04/06/19 05:59 Baso # 0.1 K/mm3 (0.0-0.1) 04/06/19 05:59 Seg Neutrophils % 77.6 % (40.0-70.0) H 04/06/19 05:59 Seg Neutrophils # 5.8 K/mm3 (1.8-7.7) 04/06/19 05:59 PT 13.0 Sec. (12.2-14.9) 04/05/19 16:07 INR 1.01 (0.87-1.13) 04/05/19 16:07 APTT 30.2 Sec. (24.2-36.6) 04/05/19 16:07 Sodium 139 mmol/L (137-145) 04/09/19 08:18 Potassium 4.5 mmol/L (3.6-5.0) D 04/09/19 08:18 Chloride 100.7 mmol/L (98-107) 04/09/19 08:18 Carbon Dioxide 27 mmol/L (22-30) 04/09/19 08:18 16 mmol/L 04/09/19 08:18 BUN 23 mg/dL (7-17) H 04/09/19 08:18 1.4 mg/dL (0.7-1.2) H 04/09/19 08:18 Estimated GFR 37 ml/min 04/09/19 08:18 16 % 04/09/19 08:18 Glucose 180 mg/dL (65-100) H 04/09/19 08:18 POC Glucose 255 (70-105) H 04/09/19 17:00 Calcium 9.4 mg/dL (8.4-10.2) 04/09/19 08:18 0.30 mg/dL (0.1-1.2) 04/09/19 08:18 AST 11 units/L (5-40) 04/09/19 08:18 ALT 14 units/L (7-56) 04/09/19 08:18 65 units/L (35-129) 04/09/19 08:18 0.018 ng/mL (0.00-0.029) 04/05/19 19:01 6.5 g/dL (6.3-8.2) 04/09/19 08:18 3.6 g/dL (3.9-5) L 04/09/19 08:18 1.2 % 04/09/19 08:18 Active Medications - Current Medications Current Medications: Generic Name Dose Route Start Last Admin Trade Name Freq PRN Reason Stop Dose Admin Acetaminophen 650 mg 04/05/19 22:16 04/09/19 12:30 Tylenol PO 650 mg Q4H PRN Administration Pain MILD(1-3)/Fever >100.5/PITTS Acetaminophen/Hydrocodone Bitart 1 each 04/05/19 22:51 04/09/19 14:11 [place] 5/325 PO 1 each Q8H PRN Administration Pain (4-6) Alprazolam 0.25 mg 04/05/19 22:51 04/07/19 22:25 Xanax PO 0.25 mg BID PRN Administration Anxiety Carvedilol 25 mg 04/06/19 10:00 04/09/19 11:14 Coreg PO 25 mg BID DELFINO Administration Dextrose 50 ml 04/05/19 22:16 D50w (25gm) Syringe IV PRN PRN Hypoglycemia Enoxaparin Sodium 40 mg 04/06/19 10:00 04/09/19 11:14 Lovenox SUB-Q 40 mg QDAY DELFINO Administration Hydralazine HCl 5 mg 04/05/19 22:54 04/09/19 12:29 Apresoline IV 5 mg Q6H PRN Administration Hypertension Hydroxychloroquine Sulfate 400 mg 04/06/19 10:00 04/09/19 11:13 Plaquenil PO 400 mg QDAY DELFINO Administration Insulin Human Isoph/Insulin Regular 15 unit 04/08/19 17:00 04/09/19 17:50 Humulin 70/30 SUB-Q 15 unit BIDDIAB DELFINO Administration Insulin Human Lispro 0 unit 04/05/19 23:06 04/09/19 16:30 Humalog SUB-Q 3 unit ACHS DELFINO Administration Protocol Loperamide HCl 2 mg 04/08/19 15:38 Imodium PO Q2H PRN Diarrhea Metformin HCl 1,000 mg 04/06/19 08:00 04/09/19 17:49 Glucophage PO 1,000 mg BIDDIAB DELFINO Administration Morphine Sulfate 4 mg 04/05/19 19:50 Morphine IV ONCE PRN Pain , Severe (7-10) Ondansetron HCl 8 mg 04/05/19 19:50 Zofran IV ONCE PRN Nausea Ondansetron HCl 4 mg 04/05/19 22:16 Zofran IV Q8H PRN Nausea And Vomiting Paroxetine HCl 40 mg 04/06/19 10:00 04/09/19 11:13 Paxil PO 40 mg DAILY DELFINO Administration Pravastatin Sodium 80 mg 04/06/19 10:00 04/09/19 11:13 Pravachol PO 80 mg QDAY DELFINO Administration Prednisone 20 mg 04/06/19 10:00 04/09/19 11:13 Deltasone PO 20 mg QDAY DELFINO Administration Sodium Chloride 10 ml 04/06/19 10:00 04/09/19 11:15 Sodium Chloride Flush Syringe 10 Ml IV 10 ml BID DELFINO Administration Sodium Chloride 10 ml 04/05/19 22:16 Sodium Chloride Flush Syringe 10 Ml IV PRN PRN LINE FLUSH Nutrition/Malnutrition Assess - Dietary Evaluation Nutrition/Malnutrition Findings: Nutrition Notes Start: 04/08/19 16:20 Freq: Status: Active Protocol: Document 04/08/19 16:20 RM (Rec: 04/08/19 16:23 RM [id number]) Nutrition Notes Need for Assessment generated from: MD Order Initial or Follow up Assessment Current Diagnosis COPD,Diabetes,Hypertension, Hyperlipidemia Other Pertinent Diagnosis Fractured rib, FTT Current Diet Cardiac/Consistent CHO w/ Glucerna TID Labs/Tests Reviewed Pertinent Medications Prednisone Height 5 ft 2 in Weight 71.4 kg [place] Body Weight (kg) 50.00 BMI 28.8 Subjective/Other Information Consulted for poor oral intake . Pt and pt nurse in room at time of visit. Pt confused at time of visit. Pt stated that her appetite is poor and nurse stated that pt ate 25% of her breakfast. Also stated that she drank 2 Glucerna. Percent of energy/protein needs met: 61%/58% Burn Absent Trauma Absent #1 Nutrition Diagnosis Inadequate oral intake Etiology decreased appetite As Evidenced by Signs and Symptoms pt nurse statement that pt ate 25% of her breakfast Is patient on ventilator? No Is Patient Ambulatory and/or Out of Bed Yes REE-([facility]-ambulatory/OOB) [ [id number] [id number]] Calculation Used for Recommendations [facility] Additional Notes Protein Needs: 71-86g (1-1.2g/ kg) Fluid Needs: 1 ml/kcal Nutrition Intervention Change Diet Order: Continue current Add Supplement/Snack (indicate name/kcal Glucerna Chocolate TID /protein ) Provides kCal: 660 Provides Protein (gm) 30 Goal #1 Meet at least 75% of calorie and protein needs via PO and ONS intakes Anticipated Discharge Needs: Cardiac/Consistent CHO diet Follow-Up By: 04/10/19 Additional Comments Follow for PO and ONS intakes
[2019-04-10 07:22] LABS: Calcium 9.2 mg/dL (8.4-10.2)
[2019-04-10] MEDS: HumaLOG SUB-Q SCH ×4 (08:29→21:49)
[2019-04-10] MEDS: GLUCOPHAGE PO SCH (08:49)
[2019-04-10] MEDS: APRESOLINE IV PRN (08:52)
[2019-04-10] MEDS: PRAVACHOL PO SCH (11:01)
[2019-04-10] MEDS: DELTASONE PO SCH (11:01)
[2019-04-10] MEDS: PAXIL PO SCH (11:01)
[2019-04-10] MEDS: PLAQUENIL PO SCH (11:02)
[2019-04-10] MEDS: LOVENOX SUB-Q SCH (11:02)
[2019-04-10] MEDS: SODIUM CHLORIDE FLUSH SYRINGE 10 ML IV SCH ×2 (11:03→21:51)
[2019-04-10] MEDS: COREG PO SCH ×2 (11:04→21:50)
[2019-04-10] MEDS: NORVASC PO SCH (11:23)
--- NOTE | 2019-04-10 13:03 | Progress Note ---
Assessment and Plan /-Acute Kidney injury; probably secondary to vasomotor nephropathy. Gentle hydration, monitor renal function, avoid nephrotoxins Consult nephrology if no improvement /-Poor oral intake ; general debility Nutrition supplements and supportive care Physical therapy and occupational therapy /s/p falll fall precautions, physical therapy occupational therapy /-Unsteady gait/difficulty ambulating, PT recommended subacute rehabilitation Continue PT OT /-Fractured rib; causing left-sided chest pain, musculoskeletal Pain medications, incentive spirometry /-Atypical chest pain; non cardiac ,secondary to trauma/rib fracture/musculoskeletal Pain medications, incentive spirometry as needed and supportive care /-hypertension; moderate control, continue current anti-hypertensives When necessary medications /-diabetes mellitus; Accu-Chek,SSC and ADA diet, metformin, 70/30 insulin 15units twice a day Check A1c . Adjust insulin dose as needed /-History of COPD; oxygen titrate O2 sats to more than 90%, nebulizers as needed /hyperlipidemia; lipid lowering medications, Low-cholesterol diet /-anxiety; anxiolytics and supportive care /-DVT prophylaxis; Lovenox /Full code /-DC planning. Case management, placement Plan of care reviewed with the patient and the family member at the bedside as well as patient's nurse Disposition;subacute rehabilitation vs SNF placement when medically stable Brief History: 73-year-old history of hypertension, diabetes, COPD, hyperlipidemia and anxiety was brought to the emergency room for difficulty ambulating. Patient sustained a fall on , fell on the left chest and hurt her knees, left greater than right. Stated that her chest feels bruise. Patient had recurrent falls. Evaluation by PT, recommend subacute versus acute rehabilitation placement, Hospitalist Physical General appearance: Present: no acute distress, well-nourished - EENT Eyes: Present: PERRL, EOM intact - Neck Neck: Present: supple, normal ROM - Respiratory Respiratory effort: normal Respiratory: bilateral: diminished, negative: rales, rhonchi, wheezing - Cardiovascular Rhythm: regular Heart Sounds: Present: S1 & S2 - Extremities Extremities: no ischemia, No edema - Abdominal General gastrointestinal: soft, non-tender, non-distended, normal bowel sounds - Integumentary Integumentary: Present: clear, warm - Psychiatric Psychiatric: appropriate mood/affect, - Neurologic Neurologic: moves all extremities Subjective Date of service: 04/10/19 Interval history: patient seen and examined no acute issue o/n states feels better, chest pain much improved Objective - Constitutional Vitals: Vital Signs - 12hr 04/10/19 04/10/19 04/10/19 05:49 08:52 09:48 Temperature 98.7 F 98.2 F Pulse Rate 89 90 Respiratory 20 19 Rate Blood Pressure 179/81 195/86 99/56 O2 Sat by Pulse 94 Oximetry 04/10/19 04/10/19 11:03 11:04 Temperature 99.0 F Pulse Rate 91 H 90 Respiratory 19 Rate Blood Pressure 124/63 O2 Sat by Pulse 93 Oximetry - Labs CBC & Chem 7: 04/06/19 05:59 04/10/19 06:50 Labs: Abnormal lab results 04/09/19 04/09/19 04/10/19 Range/Units 17:00 21:40 06:50 Sodium (137-145) mmol/L BUN (7-17) mg/dL Creatinine (0.7-1.2) mg/dL Glucose (65-100) mg/dL POC Glucose 255 H 264 H (70-105) Hemoglobin A1c 9.6 H (4-6) % 04/10/19 04/10/19 04/10/19 Range/Units 06:50 07:57 11:10 Sodium 136 L (137-145) mmol/L BUN 25 H (7-17) mg/dL Creatinine 1.3 H (0.7-1.2) mg/dL Glucose 140 H (65-100) mg/dL POC Glucose 144 H 129 H (70-105) Hemoglobin A1c (4-6) %
[2019-04-10] MEDS: NACL 0.9% 1000 ML 1,000 ML IV SCH (19:43)
[2019-04-11] MEDS: NACL 0.9% 1000 ML 1,000 ML IV SCH (05:34)
[2019-04-11] MEDS: HumaLOG SUB-Q SCH ×4 (09:31→21:32)
[2019-04-11] MEDS: COREG PO SCH ×2 (10:16→21:30)
[2019-04-11] MEDS: PAXIL PO SCH (10:16)
[2019-04-11] MEDS: PLAQUENIL PO SCH (10:16)
[2019-04-11] MEDS: PRAVACHOL PO SCH (10:16)
[2019-04-11] MEDS: NORVASC PO SCH (10:17)
[2019-04-11] MEDS: DELTASONE PO SCH (10:17)
[2019-04-11] MEDS: LOVENOX SUB-Q SCH (10:18)
[2019-04-11] MEDS: SODIUM CHLORIDE FLUSH SYRINGE 10 ML IV SCH ×2 (10:21→21:33)
--- NOTE | 2019-04-11 12:00 | Progress Note ---
Assessment and Plan /-Acute Kidney injury; probably secondary to vasomotor nephropathy. Gentle hydration, monitor renal function, avoid nephrotoxins Consult nephrology if no improvement /-Poor oral intake ; general debility Nutrition supplements and supportive care Physical therapy and occupational therapy /s/p falll fall precautions, physical therapy occupational therapy /-Unsteady gait/difficulty ambulating, PT recommended subacute rehabilitation Continue PT OT /-Fractured rib; causing left-sided chest pain, musculoskeletal Pain medications, incentive spirometry /-Atypical chest pain; non cardiac ,secondary to trauma/rib fracture/musculoskeletal Pain medications, incentive spirometry as needed and supportive care /-hypertension; moderate control, continue current anti-hypertensives When necessary medications /-diabetes mellitus; Accu-Chek,SSC and ADA diet, metformin, 70/30 insulin 15units twice a day Check A1c . Adjust insulin dose as needed /-History of COPD; oxygen titrate O2 sats to more than 90%, nebulizers as needed /hyperlipidemia; lipid lowering medications, Low-cholesterol diet /-anxiety; anxiolytics and supportive care /-DVT prophylaxis; Lovenox /Full code /-DC planning. Case management, placement Plan of care reviewed with the patient and the family member at the bedside as well as patient's nurse Disposition;subacute rehabilitation vs SNF placement when medically stable Brief History: 73-year-old history of hypertension, diabetes, COPD, hyperlipidemia and anxiety was brought to the emergency room for difficulty ambulating. Patient sustained a fall on , fell on the left chest and hurt her knees, left greater than right. Stated that her chest feels bruise. Patient had recurrent falls. Evaluation by PT, recommend subacute versus acute rehabilitation placement, Hospitalist Physical General appearance: Present: no acute distress, well-nourished - EENT Eyes: Present: PERRL, EOM intact - Neck Neck: Present: supple, normal ROM - Respiratory Respiratory effort: normal Respiratory: bilateral: diminished, negative: rales, rhonchi, wheezing - Cardiovascular Rhythm: regular Heart Sounds: Present: S1 & S2 - Extremities Extremities: no ischemia, No edema - Abdominal General gastrointestinal: soft, non-tender, non-distended, normal bowel sounds - Integumentary Integumentary: Present: clear, warm - Psychiatric Psychiatric: appropriate mood/affect, - Neurologic Neurologic: moves all extremities Subjective Date of service: 04/11/19 Interval history: patient seen and examined no acute issue o/n discussed with family Objective - Constitutional Vitals: Vital Signs - 12hr 04/11/19 04/11/19 04/11/19 05:20 10:16 10:17 Temperature 98.5 F Pulse Rate 99 H 102 H Respiratory 20 Rate Blood Pressure 164/72 199/73 199/73 O2 Sat by Pulse 94 Oximetry - Labs CBC & Chem 7: 04/06/19 05:59 04/11/19 14:48 Labs: Abnormal lab results 04/10/19 04/11/19 04/11/19 Range/Units 21:10 07:52 11:35 POC Glucose 290 H 139 H 188 H (70-105)
[2019-04-11] MEDS: TYLENOL PO PRN (13:27)
[2019-04-11 15:16] LABS: BUN/Creatinine Ratio 20; Blood Urea Nitrogen 18 mg/dL (7-17); Calcium 8.4 mg/dL (8.4-10.2); Hemolysis Index 1
[2019-04-11] MEDS: XANAX PO PRN (19:06)
[2019-04-12] MEDS: NACL 0.9% 1000 ML 1,000 ML IV SCH ×2 (00:38→09:44)
[2019-04-12] MEDS ORDERED: PROVENTIL IH PRN (05:21)
[2019-04-12] MEDS: HumaLOG SUB-Q SCH ×4 (08:04→22:08)
[2019-04-12] MEDS: PAXIL PO SCH (09:26)
[2019-04-12] MEDS: PLAQUENIL PO SCH (09:26)
[2019-04-12] MEDS: LOVENOX SUB-Q SCH (09:26)
[2019-04-12] MEDS: NORVASC PO SCH (09:27)
[2019-04-12] MEDS: COREG PO SCH ×2 (09:27→22:05)
[2019-04-12] MEDS: DELTASONE PO SCH (09:27)
[2019-04-12] MEDS: SODIUM CHLORIDE FLUSH SYRINGE 10 ML IV SCH (09:28)
[2019-04-12] MEDS: PRAVACHOL PO SCH (09:30)
--- NOTE | 2019-04-12 12:28 | Progress Note ---
Assessment and Plan Assessment and plan: 73-year-old history of hypertension, diabetes, COPD, hyperlipidemia and anxiety was brought to the emergency room for difficulty ambulating. Patient sustained a fall on , fell on the left chest and hurt her knees, left greater than right. Stated that her chest feels bruise. Patient had recurrent falls. Evaluation by PT, recommend subacute versus acute rehabilitation placement, Acute Kidney injury due to vasomotor nephropathy. Resolved Gentle hydration, monitor renal function, avoid nephrotoxins Poor oral intake ; general debility Nutrition supplements and supportive care Physical therapy and occupational therapy s/p fall precautions, physical therapy occupational therapy Unsteady gait/difficulty ambulating, PT recommended subacute rehabilitation Continue PT/OT Fractured rib; causing left-sided chest pain, musculoskeletal Pain medications, incentive spirometry Atypical chest pain; non cardiac ,secondary to trauma/rib fracture/musculoskeletal Pain medications, incentive spirometry as needed and supportive care hypertension; moderate control, continue current anti-hypertensives diabetes mellitus; Accu-Chek,SSC and ADA diet, metformin, 70/30 insulin 15units twice a day Adjust insulin dose as needed COPD; oxygen titrate O2 sats to more than 90%, nebulizers as needed hyperlipidemia; lipid lowering medications, Low-cholesterol diet anxiety; anxiolytics and supportive care DVT prophylaxis; Lovenox Full code DC planning. Case management, placement Disposition;subacute rehabilitation vs SNF placement when medically stable History Interval history: feels better, No chest pain currently Hospitalist Physical - Physical exam Narrative exam: Gen: Not in acute distress, lying in bed,Obese HEENT: Normocephalic, atraumatic Neck: supple, no JVD Heart: S1 and S2 reg, no murmurs, rubs or gallop Lungs: Clear to auscultation, nol crackles, no rhonchi Abd: soft, non tender, non distended, normal BS, Ext: Mild edema, no clubbing, no cyanosis Neuro: Awake,alert, Oriented X 3. No focal neuro signs Psych: normal mood - Constitutional Vitals: Temp Pulse Resp BP Pulse Ox 97.3 F L 91 H 24 151/61 96 04/12/19 04:52 04/12/19 04:51 04/12/19 04:52 04/12/19 09:27 04/12/19 10:00 General appearance: Present: no acute distress, well-nourished Results - Labs CBC & Chem 7: 04/06/19 05:59 04/11/19 14:48 Labs: Laboratory Last Values WBC 7.5 K/mm3 (4.5-11.0) 04/06/19 05:59 RBC 3.63 M/mm3 (3.65-5.03) L 04/06/19 05:59 Hgb 8.1 gm/dl (10.1-14.3) L 04/06/19 05:59 Hct 25.5 % (30.3-42.9) L 04/06/19 05:59 MCV 70 fl (79-97) L 04/06/19 05:59 MCH 22 pg (28-32) L 04/06/19 05:59 MCHC 32 % (30-34) 04/06/19 05:59 RDW 18.9 % (13.2-15.2) H 04/06/19 05:59 Plt Count 334 K/mm3 (140-440) 04/06/19 05:59 Lymph % (Auto) 14.5 % (13.4-35.0) 04/06/19 05:59 [place] % (Auto) 4.7 % (0.0-7.3) 04/06/19 05:59 Eos % (Auto) 2.4 % (0.0-4.3) 04/06/19 05:59 Baso % (Auto) 0.8 % (0.0-1.8) 04/06/19 05:59 Lymph # 1.1 K/mm3 (1.2-5.4) L 04/06/19 05:59 [place] # 0.4 K/mm3 (0.0-0.8) 04/06/19 05:59 Eos # 0.2 K/mm3 (0.0-0.4) 04/06/19 05:59 Baso # 0.1 K/mm3 (0.0-0.1) 04/06/19 05:59 Seg Neutrophils % 77.6 % (40.0-70.0) H 04/06/19 05:59 Seg Neutrophils # 5.8 K/mm3 (1.8-7.7) 04/06/19 05:59 PT 13.0 Sec. (12.2-14.9) 04/05/19 16:07 INR 1.01 (0.87-1.13) 04/05/19 16:07 APTT 30.2 Sec. (24.2-36.6) 04/05/19 16:07 Sodium 137 mmol/L (137-145) 04/11/19 14:48 Potassium 4.0 mmol/L (3.6-5.0) 04/11/19 14:48 Chloride 101.2 mmol/L (98-107) 04/11/19 14:48 Carbon Dioxide 23 mmol/L (22-30) 04/11/19 14:48 17 mmol/L 04/11/19 14:48 BUN 18 mg/dL (7-17) H 04/11/19 14:48 0.9 mg/dL (0.7-1.2) 04/11/19 14:48 Estimated GFR > 60 ml/min 04/11/19 14:48 20 % 04/11/19 14:48 Glucose 118 mg/dL (65-100) H 04/11/19 14:48 POC Glucose 253 (70-105) H 04/12/19 11:06 9.6 % (4-6) H 04/10/19 06:50 Calcium 8.4 mg/dL (8.4-10.2) 04/11/19 14:48 0.30 mg/dL (0.1-1.2) 04/09/19 08:18 AST 11 units/L (5-40) 04/09/19 08:18 ALT 14 units/L (7-56) 04/09/19 08:18 65 units/L (35-129) 04/09/19 08:18 0.018 ng/mL (0.00-0.029) 04/05/19 19:01 6.5 g/dL (6.3-8.2) 04/09/19 08:18 3.6 g/dL (3.9-5) L 04/09/19 08:18 1.2 % 04/09/19 08:18 Active Medications - Current Medications Current Medications: Generic Name Dose Route Start Last Admin Trade Name Freq PRN Reason Stop Dose Admin Acetaminophen 650 mg 04/05/19 22:16 04/11/19 13:27 Tylenol PO 650 mg Q4H PRN Administration Pain MILD(1-3)/Fever >100.5/PITTS Acetaminophen/Hydrocodone Bitart 1 each 04/05/19 22:51 04/09/19 14:11 [place] 5/325 PO 1 each Q8H PRN Administration Pain (4-6) Albuterol 2.5 mg 04/12/19 05:21 Proventil IH Q4HRT PRN Shortness Of Breath Alprazolam 0.25 mg 04/05/19 22:51 04/11/19 19:06 Xanax PO 0.25 mg BID PRN Administration Anxiety Amlodipine Besylate 10 mg 04/10/19 11:00 04/12/19 09:27 Norvasc PO 10 mg QDAY DELFINO Administration Carvedilol 25 mg 04/06/19 10:00 04/12/19 09:27 Coreg PO 25 mg BID DELFINO Administration Dextrose 50 ml 04/05/19 22:16 D50w (25gm) Syringe IV PRN PRN Hypoglycemia Enoxaparin Sodium 40 mg 04/06/19 10:00 04/12/19 09:26 Lovenox SUB-Q 40 mg QDAY DELFINO Administration Hydralazine HCl 5 mg 04/05/19 22:54 04/10/19 08:52 Apresoline IV 5 mg Q6H PRN Administration Hypertension Hydroxychloroquine Sulfate 400 mg 04/06/19 10:00 04/12/19 09:26 Plaquenil PO 400 mg QDAY DELFINO Administration Sodium Chloride 1,000 mls @ 100 mls/hr 04/10/19 14:00 04/12/19 09:44 Nacl 0.9% 1000 Ml IV 100 mls/hr DIRECT DELFINO Administration Insulin Human Isoph/Insulin Regular 15 unit 04/08/19 17:00 04/12/19 09:25 Humulin 70/30 SUB-Q 15 unit BIDDIAB DELFINO Administration Insulin Human Lispro 0 unit 04/05/19 23:06 04/12/19 08:04 Humalog SUB-Q Not Given ACHS [facility] Protocol Loperamide HCl 2 mg 04/08/19 15:38 Imodium PO Q2H PRN Diarrhea Morphine Sulfate 4 mg 04/05/19 19:50 Morphine IV ONCE PRN Pain , Severe (7-10) Ondansetron HCl 8 mg 04/05/19 19:50 Zofran IV ONCE PRN Nausea Ondansetron HCl 4 mg 04/05/19 22:16 Zofran IV Q8H PRN Nausea And Vomiting Paroxetine HCl 40 mg 04/06/19 10:00 04/12/19 09:26 Paxil PO 40 mg DAILY DELFINO Administration Pravastatin Sodium 80 mg 04/06/19 10:00 04/12/19 09:30 Pravachol PO 80 mg QDAY DELFINO Administration Prednisone 20 mg 04/06/19 10:00 04/12/19 09:27 Deltasone PO 20 mg QDAY DELFINO Administration Sodium Chloride 10 ml 04/06/19 10:00 04/12/19 09:28 Sodium Chloride Flush Syringe 10 Ml IV 10 ml BID DELFINO Administration Sodium Chloride 10 ml 04/05/19 22:16 Sodium Chloride Flush Syringe 10 Ml IV PRN PRN LINE FLUSH Nutrition/Malnutrition Assess - Dietary Evaluation Nutrition/Malnutrition Findings: Nutrition Notes Start: 04/08/19 16:20 Freq: Status: Active Protocol: Document 04/10/19 16:32 RM (Rec: 04/10/19 16:40 RM [id number]) Nutrition Notes Initial or Follow up Reassessment Current Diagnosis COPD,Diabetes,Hypertension, Hyperlipidemia Other Pertinent Diagnosis Fractured rib, FTT Current Diet Cardiac/Consistent CHO w/ Glucerna TID Labs/Tests Reviewed Pertinent Medications Prednisone Height 5 ft 2 in Weight 71.4 kg [place] Body Weight (kg) 50.00 BMI 28.8 Subjective/Other Information Pt and OT in room at time of visit. Pt confused at time of visit. Noted uneaten breakfast and unopened Glucerna at bedside. OT stated that pt didn't eat lunch yesterday. Tech stated that pt only drank juice today. Percent of energy/protein needs met: 0%/0% Burn Absent Trauma Absent #1 Nutrition Diagnosis Inadequate oral intake Diagnosis Progress(for reassessment Continues documentation) Is patient on ventilator? No Is Patient Ambulatory and/or Out of Bed Yes REE-([facility]-ambulatory/OOB) [ 1517.425 [email or web address]] Calculation Used for Recommendations [facility] Additional Notes Protein Needs: 71-86g (1-1.2g/ kg) Fluid Needs: 1 ml/kcal Nutrition Intervention Change Diet Order: Continue current Add Supplement/Snack (indicate name/kcal D/C Glucerna. Add Ensure /protein ) Clear 1 daily Provides kCal: 240 Provides Protein (gm) 8 Goal #1 Meet at least 75% of calorie and protein needs via PO and ONS intakes Anticipated Discharge Needs: Cardiac/Consistent CHO diet Follow-Up By: 04/15/19 Additional Comments Follow for PO and ONS intakes
[2019-04-13] MEDS: SODIUM CHLORIDE FLUSH SYRINGE 10 ML IV SCH ×3 (01:06→21:14)
[2019-04-13] MEDS: NACL 0.9% 1000 ML 1,000 ML IV SCH ×2 (05:26→15:05)
[2019-04-13] MEDS: NORCO 5/325 PO PRN (05:29)
[2019-04-13] MEDS: HumaLOG SUB-Q SCH ×4 (08:23→21:47)
[2019-04-13] MEDS: PLAQUENIL PO SCH (09:34)
[2019-04-13] MEDS: PRAVACHOL PO SCH (09:34)
[2019-04-13] MEDS: PAXIL PO SCH (09:34)
[2019-04-13] MEDS: DELTASONE PO SCH (09:34)
[2019-04-13] MEDS: LOVENOX SUB-Q SCH (09:34)
[2019-04-13] MEDS: COREG PO SCH ×2 (09:35→21:14)
[2019-04-13] MEDS: NORVASC PO SCH (09:36)
--- NOTE | 2019-04-13 12:38 | Progress Note ---
Assessment and Plan Assessment and plan: 73-year-old history of hypertension, diabetes, COPD, hyperlipidemia and anxiety was brought to the emergency room for difficulty ambulating. Patient sustained a fall on , fell on the left chest and hurt her knees, left greater than right. Stated that her chest feels bruise. Patient had recurrent falls. Evaluation by PT. She is medically stable awaiting placement. Acute Kidney injury due to vasomotor nephropathy. Resolved Gentle hydration, monitor renal function, avoid nephrotoxins Poor oral intake ; general debility Nutrition supplements and supportive care Physical therapy and occupational therapy s/p fall precautions, physical therapy occupational therapy Unsteady gait/difficulty ambulating, PT recommended subacute rehabilitation Continue PT/OT Fractured rib; causing left-sided chest pain, musculoskeletal Pain medications, incentive spirometry Atypical chest pain; non cardiac ,secondary to trauma/rib fracture/musculoskeletal Pain medications, incentive spirometry as needed and supportive care hypertension; moderate control, continue current anti-hypertensives diabetes mellitus; Accu-Chek,SSC and ADA diet, metformin, 70/30 insulin 15units twice a day Adjust insulin dose as needed COPD; oxygen titrate O2 sats to more than 90%, nebulizers as needed hyperlipidemia; lipid lowering medications, Low-cholesterol diet anxiety; anxiolytics and supportive care DVT prophylaxis; Lovenox Full code DC planning. Case management, placement Medically stable , awaiting placement. History Interval history: feels better, No chest pain currently Hospitalist Physical - Physical exam Narrative exam: Gen: Not in acute distress, lying in bed,Obese HEENT: Normocephalic, atraumatic Neck: supple, no JVD Heart: S1 and S2 reg, no murmurs, rubs or gallop Lungs: Clear to auscultation, nol crackles, no rhonchi Abd: soft, non tender, non distended, normal BS, Ext: Mild edema, no clubbing, no cyanosis Neuro: Awake,alert, Oriented X 3. No focal neuro signs Psych: normal mood - Constitutional Vitals: Temp Pulse Resp BP Pulse Ox 94.0 F L 78 18 105/65 93 04/13/19 04:28 04/13/19 09:36 04/13/19 04:28 04/13/19 09:36 04/13/19 04:28 General appearance: Present: no acute distress Results - Labs CBC & Chem 7: 04/06/19 05:59 08/17/19 14:48 Labs: Laboratory Last Values WBC 7.5 K/mm3 (4.5-11.0) 04/06/19 05:59 RBC 3.63 M/mm3 (3.65-5.03) L 04/06/19 05:59 Hgb 8.1 gm/dl (10.1-14.3) L 04/06/19 05:59 Hct 25.5 % (30.3-42.9) L 04/06/19 05:59 MCV 70 fl (79-97) L 04/06/19 05:59 MCH 22 pg (28-32) L 04/06/19 05:59 MCHC 32 % (30-34) 04/06/19 05:59 RDW 18.9 % (13.2-15.2) H 04/06/19 05:59 Plt Count 334 K/mm3 (140-440) 04/06/19 05:59 Lymph % (Auto) 14.5 % (13.4-35.0) 04/06/19 05:59 [place] % (Auto) 4.7 % (0.0-7.3) 04/06/19 05:59 Eos % (Auto) 2.4 % (0.0-4.3) 04/06/19 05:59 Baso % (Auto) 0.8 % (0.0-1.8) 04/06/19 05:59 Lymph # 1.1 K/mm3 (1.2-5.4) L 04/06/19 05:59 [place] # 0.4 K/mm3 (0.0-0.8) 04/06/19 05:59 Eos # 0.2 K/mm3 (0.0-0.4) 04/06/19 05:59 Baso # 0.1 K/mm3 (0.0-0.1) 04/06/19 05:59 Seg Neutrophils % 77.6 % (40.0-70.0) H 04/06/19 05:59 Seg Neutrophils # 5.8 K/mm3 (1.8-7.7) 04/06/19 05:59 PT 13.0 Sec. (12.2-14.9) 04/05/19 16:07 INR 1.01 (0.87-1.13) 04/05/19 16:07 APTT 30.2 Sec. (24.2-36.6) 04/05/19 16:07 Sodium 137 mmol/L (137-145) 04/11/19 14:48 Potassium 4.0 mmol/L (3.6-5.0) 04/11/19 14:48 Chloride 101.2 mmol/L (98-107) 04/11/19 14:48 Carbon Dioxide 23 mmol/L (22-30) 04/11/19 14:48 17 mmol/L 04/11/19 14:48 BUN 18 mg/dL (7-17) H 04/11/19 14:48 0.9 mg/dL (0.7-1.2) 04/11/19 14:48 Estimated GFR > 60 ml/min 04/11/19 14:48 20 % 04/11/19 14:48 Glucose 118 mg/dL (65-100) H 04/11/19 14:48 POC Glucose 238 (70-105) H 04/13/19 11:25 9.6 % (4-6) H 04/10/19 06:50 Calcium 8.4 mg/dL (8.4-10.2) 04/11/19 14:48 0.30 mg/dL (0.1-1.2) 04/09/19 08:18 AST 11 units/L (5-40) 04/09/19 08:18 ALT 14 units/L (7-56) 04/09/19 08:18 65 units/L (35-129) 04/09/19 08:18 0.018 ng/mL (0.00-0.029) 04/05/19 19:01 6.5 g/dL (6.3-8.2) 04/09/19 08:18 3.6 g/dL (3.9-5) L 04/09/19 08:18 1.2 % 04/09/19 08:18 Active Medications - Current Medications Current Medications: Generic Name Dose Route Start Last Admin Trade Name Freq PRN Reason Stop Dose Admin Acetaminophen 650 mg 04/05/19 22:16 04/11/19 13:27 Tylenol PO 650 mg Q4H PRN Administration Pain MILD(1-3)/Fever >100.5/PITTS Acetaminophen/Hydrocodone Bitart 1 each 04/05/19 22:51 04/13/19 05:29 [place] 5/325 PO 1 each Q8H PRN Administration Pain (4-6) Albuterol 2.5 mg 04/12/19 05:21 Proventil IH Q4HRT PRN Shortness Of Breath Alprazolam 0.25 mg 04/05/19 22:51 04/11/19 19:06 Xanax PO 0.25 mg BID PRN Administration Anxiety Amlodipine Besylate 10 mg 04/10/19 11:00 04/13/19 09:36 Norvasc PO Not Given QDAY DELFINO Carvedilol 25 mg 04/06/19 10:00 04/13/19 09:35 Coreg PO 25 mg BID DELFINO Administration Dextrose 50 ml 04/05/19 22:16 D50w (25gm) Syringe IV PRN PRN Hypoglycemia Enoxaparin Sodium 40 mg 04/06/19 10:00 04/13/19 09:34 Lovenox SUB-Q 40 mg QDAY DELFION Administration Hydralazine HCl 5 mg 04/05/19 22:54 04/10/19 08:52 Apresoline IV 5 mg Q6H PRN Administration Hypertension Hydroxychloroquine Sulfate 400 mg 04/06/19 10:00 04/13/19 09:34 Plaquenil PO 400 mg QDAY DELFINO Administration Sodium Chloride 1,000 mls @ 100 mls/hr 04/10/19 14:00 04/13/19 05:26 Nacl 0.9% 1000 Ml IV 100 mls/hr DIRECT DELFINO Administration Insulin Human Isoph/Insulin Regular 15 unit 04/08/19 17:00 04/13/19 12:03 Humulin 70/30 SUB-Q 15 unit BIDDIAB DELFINO Administration Insulin Human Lispro 0 unit 04/05/19 23:06 04/13/19 12:02 Humalog SUB-Q 3 unit ACHS DELFINO Administration Protocol Loperamide HCl 2 mg 04/08/19 15:38 Imodium PO Q2H PRN Diarrhea Morphine Sulfate 4 mg 04/05/19 19:50 Morphine IV ONCE PRN Pain , Severe (7-10) Ondansetron HCl 8 mg 04/05/19 19:50 Zofran IV ONCE PRN Nausea Ondansetron HCl 4 mg 04/05/19 22:16 04/13/19 05:30 Zofran IV 4 mg Q8H PRN Administration Nausea And Vomiting Paroxetine HCl 40 mg 04/06/19 10:00 04/13/19 09:34 Paxil PO 40 mg DAILY DELFINO Administration Pravastatin Sodium 80 mg 04/06/19 10:00 04/13/19 09:34 Pravachol PO 80 mg QDAY DELFINO Administration Prednisone 20 mg 04/06/19 10:00 04/13/19 09:34 Deltasone PO 20 mg QDAY DELFINO Administration Sodium Chloride 10 ml 04/06/19 10:00 04/13/19 09:36 Sodium Chloride Flush Syringe 10 Ml IV 10 ml BID DELFINO Administration Sodium Chloride 10 ml 04/05/19 22:16 Sodium Chloride Flush Syringe 10 Ml IV PRN PRN LINE FLUSH Nutrition/Malnutrition Assess - Dietary Evaluation Nutrition/Malnutrition Findings: Nutrition Notes Start: 04/08/19 16:20 Freq: Status: Active Protocol: Document 04/10/19 16:32 RM (Rec: 04/10/19 16:40 RM [id number]) Nutrition Notes Initial or Follow up Reassessment Current Diagnosis COPD,Diabetes,Hypertension, Hyperlipidemia Other Pertinent Diagnosis Fractured rib, FTT Current Diet Cardiac/Consistent CHO w/ Glucerna TID Labs/Tests Reviewed Pertinent Medications Prednisone Height 5 ft 2 in Weight 71.4 kg [place] Body Weight (kg) 50.00 BMI 28.8 Subjective/Other Information Pt and OT in room at time of visit. Pt confused at time of visit. Noted uneaten breakfast and unopened Glucerna at bedside. OT stated that pt didn't eat lunch yesterday. Tech stated that pt only drank juice today. Percent of energy/protein needs met: 0%/0% Burn Absent Trauma Absent #1 Nutrition Diagnosis Inadequate oral intake Diagnosis Progress(for reassessment Continues documentation) Is patient on ventilator? No Is Patient Ambulatory and/or Out of Bed Yes REE-([facility]-ambulatory/OOB) [ 1517.425 [email or web address]] Calculation Used for Recommendations [facility] Additional Notes Protein Needs: 71-86g (1-1.2g/ kg) Fluid Needs: 1 ml/kcal Nutrition Intervention Change Diet Order: Continue current Add Supplement/Snack (indicate name/kcal D/C Glucerna. Add Ensure /protein ) Clear 1 daily Provides kCal: 240 Provides Protein (gm) 8 Goal #1 Meet at least 75% of calorie and protein needs via PO and ONS intakes Anticipated Discharge Needs: Cardiac/Consistent CHO diet Follow-Up By: 04/15/19 Additional Comments Follow for PO and ONS intakes
[2019-04-13] MEDS ORDERED: ALUM-MAG HYDROX-SIMETH 200-200-20MG/5ML PO PRN (18:49)
[2019-04-13] MEDS: XANAX PO PRN (18:49)
[2019-04-13] MEDS: PEPCID PO SCH (21:14)
[2019-04-14] MEDS: NACL 0.9% 1000 ML 1,000 ML IV SCH ×3 (00:15→21:51)
[2019-04-14] MEDS: HumaLOG SUB-Q SCH ×4 (08:54→22:23)
[2019-04-14] MEDS: DELTASONE PO SCH (10:03)
[2019-04-14] MEDS: PRAVACHOL PO SCH (10:03)
[2019-04-14] MEDS: COREG PO SCH ×2 (10:03→21:51)
[2019-04-14] MEDS: PEPCID PO SCH ×2 (10:03→21:40)
[2019-04-14] MEDS: PLAQUENIL PO SCH (10:05)
[2019-04-14] MEDS: PAXIL PO SCH (10:05)
[2019-04-14] MEDS: NORVASC PO SCH (10:06)
[2019-04-14] MEDS: LOVENOX SUB-Q SCH (10:06)
[2019-04-14] MEDS: SODIUM CHLORIDE FLUSH SYRINGE 10 ML IV SCH ×2 (10:06→21:40)
--- NOTE | 2019-04-14 14:44 | Progress Note ---
Assessment and Plan /-Acute Kidney injury; probably secondary to vasomotor nephropathy. Gentle hydration, monitor renal function, avoid nephrotoxins Consult nephrology if no improvement /-Poor oral intake ; general debility Nutrition supplements and supportive care Physical therapy and occupational therapy /s/p falll fall precautions, physical therapy occupational therapy /-Unsteady gait/difficulty ambulating, PT recommended subacute rehabilitation Continue PT OT /-Fractured rib; causing left-sided chest pain, musculoskeletal Pain medications, incentive spirometry /-Atypical chest pain; non cardiac ,secondary to trauma/rib fracture/musculoskeletal Pain medications, incentive spirometry as needed and supportive care /-hypertension; moderate control, continue current anti-hypertensives When necessary medications /-diabetes mellitus; Accu-Chek,SSC and ADA diet, metformin, 70/30 insulin 15units twice a day Check A1c . Adjust insulin dose as needed /-History of COPD; oxygen titrate O2 sats to more than 90%, nebulizers as needed /hyperlipidemia; lipid lowering medications, Low-cholesterol diet /-anxiety; anxiolytics and supportive care /-DVT prophylaxis; Lovenox /Full code /-DC planning. Case management, placement Plan of care reviewed with the patient and the family member at the bedside as well as patient's nurse Disposition;subacute rehabilitation vs SNF placement when medically stable Brief History: 73-year-old history of hypertension, diabetes, COPD, hyperlipidemia and anxiety was brought to the emergency room for difficulty ambulating. Patient sustained a fall on , fell on the left chest and hurt her knees, left greater than right. Stated that her chest feels bruise. Patient had recurrent falls. Evaluation by PT, recommend subacute versus acute rehabilitation placement, Hospitalist Physical General appearance: Present: no acute distress, well-nourished - EENT Eyes: Present: PERRL, EOM intact - Neck Neck: Present: supple, normal ROM - Respiratory Respiratory effort: normal Respiratory: bilateral: diminished, negative: rales, rhonchi, wheezing - Cardiovascular Rhythm: regular Heart Sounds: Present: S1 & S2 - Extremities Extremities: no ischemia, No edema - Abdominal General gastrointestinal: soft, non-tender, non-distended, normal bowel sounds - Integumentary Integumentary: Present: clear, warm - Psychiatric Psychiatric: appropriate mood/affect, - Neurologic Neurologic: moves all extremities Subjective Date of service: 04/14/19 Interval history: patient seen and examined no acute issue o/n discussed with family Objective - Constitutional Vitals: Vital Signs - 12hr 04/14/19 04/14/19 04/14/19 06:44 08:36 10:03 Temperature 99.0 F Pulse Rate 76 89 Respiratory 18 Rate Blood Pressure 167/59 115/54 O2 Sat by Pulse 93 95 Oximetry 04/14/19 11:39 Temperature 98.8 F Pulse Rate 74 Respiratory 18 Rate Blood Pressure 105/48 O2 Sat by Pulse 97 Oximetry - Labs CBC & Chem 7: 04/06/19 05:59 04/11/19 14:48 Labs: Abnormal lab results 04/13/19 04/13/19 04/14/19 Range/Units 17:00 21:29 11:50 POC Glucose 193 H 166 H 150 H (70-105)
[2019-04-14] MEDS: XANAX PO PRN (18:12)
[2019-04-14] MEDS: NORCO 5/325 PO PRN (21:51)
[2019-04-15] MEDS: NACL 0.9% 1000 ML 1,000 ML IV SCH (07:03)
[2019-04-15] MEDS: HumaLOG SUB-Q SCH (08:50)
[2019-04-15] MEDS: PLAQUENIL PO SCH (11:29)
[2019-04-15] MEDS: NORVASC PO SCH (11:29)
[2019-04-15] MEDS: PAXIL PO SCH (11:31)
[2019-04-15] MEDS: LOVENOX SUB-Q SCH (11:31)
[2019-04-15] MEDS: COREG PO SCH (11:31)
[2019-04-15] MEDS: PRAVACHOL PO SCH (11:32)
[2019-04-15] MEDS: DELTASONE PO SCH (11:32)
[2019-04-15] MEDS: PEPCID PO SCH (11:32)
[2019-04-15] MEDS: SODIUM CHLORIDE FLUSH SYRINGE 10 ML IV SCH (11:33)
[2019-04-15 12:17] VITALS: BP 147/66
--- NOTE | 2019-04-15 13:01 | Discharge Summary ---
Providers - Providers Date of Admission: 04/05/19 22:16 Date of discharge: 04/15/19 Attending physician: ANGELA SCHMITT 04/05/19 22:19 Physical Therapy Evaluation and Treat [CONS] Routine Comment: Reason For Exam: difficulty ambulating 04/07/19 14:21 Consult to Dietitian/Nutrition [CONS] Routine Physician Instructions: Reason For Exam: Reason for Consult: Poor oral intake 04/07/19 19:35 Occupational Therapy Evaluate and Treat [CONS] Routine Comment: Reason For Exam: evaluate and treat/h/o fall 04/13/19 10:03 Physical Therapy Evaluation and Treat [CONS] Routine Comment: SNF placement Reason For Exam: Eval and Treat Primary care physician: JAMI GALO Hospitalization Condition: Fair Hospital course: Discharge Diagnosis: /-Acute Kidney injury; probably secondary to vasomotor nephropathy. Gentle hydration, monitor renal function, avoid nephrotoxins Consult nephrology if no improvement /-Poor oral intake ; general debility Nutrition supplements and supportive care Physical therapy and occupational therapy /s/p falll fall precautions, physical therapy occupational therapy /-Unsteady gait/difficulty ambulating, PT recommended subacute rehabilitation Continue PT OT /-Fractured rib; causing left-sided chest pain, musculoskeletal Pain medications, incentive spirometry /-Atypical chest pain; non cardiac ,secondary to trauma/rib fracture/musculoskeletal Pain medications, incentive spirometry as needed and supportive care /-hypertension; moderate control, continue current anti-hypertensives When necessary medications /-diabetes mellitus; Accu-Chek,SSC and ADA diet, metformin, 70/30 insulin 15units twice a day Check A1c . Adjust insulin dose as needed /-History of COPD; oxygen titrate O2 sats to more than 90%, nebulizers as needed /hyperlipidemia; lipid lowering medications, Low-cholesterol diet /-anxiety; anxiolytics and supportive care /-DVT prophylaxis; Lovenox /Full code /-DC planning. Case management, placement Plan of care reviewed with the patient and the family member at the bedside as well as patient's nurse Disposition;subacute rehabilitation vs SNF placement when medically stable Brief History: 73-year-old history of hypertension, diabetes, COPD, hyperlipidemia and anxiety was brought to the emergency room for difficulty ambulating. Patient sustained a fall on , fell on the left chest and hurt her knees, left greater than right. Stated that her chest feels bruise. Patient had recurrent falls. Evaluation by PT, recommend subacute versus acute rehabilitation placement, Hospitalist Physical General appearance: Present: no acute distress, well-nourished - EENT Eyes: Present: PERRL, EOM intact - Neck Neck: Present: supple, normal ROM - Respiratory Respiratory effort: normal Respiratory: bilateral: diminished, negative: rales, rhonchi, wheezing - Cardiovascular Rhythm: regular Heart Sounds: Present: S1 & S2 - Extremities Extremities: no ischemia, No edema - Abdominal General gastrointestinal: soft, non-tender, non-distended, normal bowel sounds - Integumentary Integumentary: Present: clear, warm - Psychiatric Psychiatric: appropriate mood/affect, - Neurologic Neurologic: moves all extremities Disposition: [id number] HOME UNDER HOME [facility] Time spent for discharge: 34 minutes Core Measure Documentation - Palliative Care Palliative Care/ Comfort Measures: Not Applicable - Core Measures Any of the following diagnoses?: none Exam - Constitutional Vitals: Temp Pulse Resp BP Pulse Ox 97.2 F L 83 18 147/66 98 04/15/19 12:13 04/15/19 12:13 04/15/19 12:13 04/15/19 12:13 04/15/19 12:13 Plan Activity: fall precautions Weight Bearing Status: Non-Weight Bearing Diet: low fat, low salt Durable Medical Equipment Needed Upon Discharge: Walker-Rolling Follow up with: JAMI GALO MD [Primary Care Provider] - 3-5 Days Prescriptions: amLODIPine [Norvasc] 10 mg PO QDAY #30 tablet
== END 2019-04-15 14:20 | disposition home health service (06) | DRG 205 ==
LOC: ED 15:28 → 3A 22:16
PROVIDERS: ADMIT Internal Medicine; ATTEND Internal Medicine
DX: S22.32XA Fracture of one rib, left side, initial encounter for closed fracture (principal); N17.0 Acute kidney failure with tubular necrosis; R62.7 Adult failure to thrive; F41.9 Anxiety disorder, unspecified; E11.9 Type 2 diabetes mellitus without complications; J44.9 Chronic obstructive pulmonary disease, unspecified; E78.5 Hyperlipidemia, unspecified; W18.39XA Other fall on same level, initial encounter; Y93.89 Activity, other specified; Y92.098 Other place in other non-institutional residence as the place of occurrence of the external cause; Y99.8 Other external cause status; Z83.3 Family history of diabetes mellitus; Z82.49 Family history of ischemic heart disease and other diseases of the circulatory system; Z90.89 Acquired absence of other organs; Z90.49 Acquired absence of other specified parts of digestive tract; Z88.5 Allergy status to narcotic agent; Z88.0 Allergy status to penicillin; Z79.01 Long term (current) use of anticoagulants; Z68.32 Body mass index [BMI] 32.0-32.9, adult; Z87.891 Personal history of nicotine dependence; Z79.84 Long term (current) use of oral hypoglycemic drugs
CPT/HCPCS: 36415; 70450; 71046; 71250; 72170; 80048; 80053; 82962; 83036; 84484; 85025; 85610; 85730; 87116; 93005; 93010; 94640; 94760; G0378; A9270-GY; J0360; J1650; J1815; J2405; J7030; J7512

== ENCOUNTER 2019-04-28 16:38 | Emergency (ER) | payer MEDICARE ==
[2019-04-28 16:51] VITALS: BP 150/77
--- NOTE | 2019-04-28 16:53 | Event Note ---
ED Screening Note Date of service: 04/28/19 Time: 16:50 ED Screening Note: 73 y o F presents for sob and no energy This initial assessment/diagnostic orders/clinical plan/treatment(s) is/are subject to change based on patients health status, clinical progression and re- assessment by fellow clinical providers in the ED. Further treatment and workup at subsequent clinical providers discretion. Patient/guardian urged not to elope from the ED as their condition may be serious if not clinically assessed and managed. Initial orders include: labs, cxr
--- NOTE | 2019-04-28 17:34 | XRay Report ---
CHEST 2 VIEWS INDICATION / CLINICAL INFORMATION: Dyspnea. COMPARISON: 04/05/2019 FINDINGS: SUPPORT DEVICES: None. HEART / MEDIASTINUM: Heart size is normal. A large gas-filled hiatal hernia is again demonstrated. LUNGS / PLEURA: No significant pulmonary or pleural abnormality. No pneumothorax. ADDITIONAL FINDINGS: No significant additional findings. IMPRESSION: 1. No acute findings. 2. Gas-filled hiatal hernia. Signer Name: Silviano Galindo MD Signed: 04/28/2019 5:30 PM Workstation Name: [id number]
[2019-04-28 18:01] LABS: Basophils # (Auto) 0.1 K/mm3 (0.0-0.1); Basophils % (Auto) 0.9 % (0.0-1.8); Eosinophils # (Auto) 0.2 K/mm3 (0.0-0.4); Eosinophils % (Auto) 2.4 % (0.0-4.3); Hematocrit 27.6 % (30.3-42.9); Hemoglobin 8.3 gm/dl (10.1-14.3); Lymphocytes # (Auto) 1.5 K/mm3 (1.2-5.4); Lymphocytes % (Auto) 16.3 % (13.4-35.0); Mean Corpuscular HGB Conc 30 % (30-34); Mean Corpuscular Volume 72 fl (79-97); Monocytes # (Auto) 0.4 K/mm3 (0.0-0.8); Monocytes % (Auto) 3.8 % (0.0-7.3); Platelet Count 438 K/mm3 (140-440); Red Blood Count 3.82 M/mm3 (3.65-5.03)
[2019-04-28 18:05] LABS: INR 0.93 (0.87-1.13); Partial Thromboplastin Time 24.4 Sec. (24.2-36.6)
[2019-04-28 18:10] LABS: Creatine Kinase MB 2.1 ng/mL (0.0-4.0)
[2019-04-28 18:11] LABS: Albumin 3.8 g/dL (3.9-5); Calcium 8.7 mg/dL (8.4-10.2)
== END 2019-04-28 18:15 | disposition left against medical advice (07) ==
LOC: ED 16:38
DX: R09.02 Hypoxemia (principal); Z53.21 Procedure and treatment not carried out due to patient leaving prior to being seen by health care provider
CPT/HCPCS: 36415; 71046; 80053; 82140; 82550; 82553; 84484; 85025; 85379; 85610; 85730